=== PATIENT | male | born 1975 | race Caucasian/White ===

== ENCOUNTER 2017-05-20 20:15 | Emergency (ER) | payer BC ==
[2017-05-20] MEDS ORDERED: ACETAMINOPHEN TAB 500 MG TAB PO STA (20:49)
[2017-05-20] MEDS ORDERED: PROMETHAZ-COD 6.25-10 MG/5 ML 5 ML CUP PO STA (20:50)
[2017-05-20] MEDS ORDERED: IPRATROPIUM-ALBUTEROL 3 ML NEB INHALATION STA (20:50)
[2017-05-20] MEDS: SODIUM CHLORIDE 0.9% 500 ML IV SCH ×2 (21:19→22:09)
[2017-05-20 21:24] VITALS: RESP 16
[2017-05-20 21:29] LABS: Basophils % (A) 1 %; Eosinophils # (A) 0.1 k/uL (0-0.7); Eosinophils % (A) 1 %; HGB 12.6 gm/dL (13.0-17.5); Lymphocytes # (A) 0.8 k/uL (1.0-4.8); Lymphocytes % (A) 9 %; MCH 27.1 pg (25.0-35.0); MCHC 32.2 g/dL (31.0-37.0); Mean Platelet Volume 8.2; Monocytes # (A) 1.2 k/uL (0-1.0); Monocytes % (A) 13 %; Neutrophils # (A) 6.7 k/uL (1.3-7.7); Neutrophils % (A) 74 %; Platelet Count 207 k/uL (150-450); RBC 4.65 m/uL (4.30-5.90); RDW 12.5 % (11.5-15.5)
--- NOTE | 2017-05-20 21:29 | ED ---
URI HPI - General Chief Complaint: Upper Respiratory Infection Stated Complaint: FLU Time Seen by Provider: 05/20/17 20:31 Source: patient, RN notes reviewed, old records reviewed Mode of arrival: ambulatory Limitations: no limitations - History of Present Illness Initial Comments: This patient is a 42-year-old male presents emergency Department with chief complaint of the diagnosis of flu earlier this week. Patient was started on Tamiflu and alternating Motrin or Tylenol, but and he were concerned because he is continuing to have fevers for a prolonged period of time. He reports he's had a headache and bodyaches but those subsided at this time. Patient reports that he started to develop a cough yesterday into today. reports his been very harsh. Patient has had Motrin and Tylenol at 5:30 and 6: 30. He reports that the redness swelling and feels very chilled. He denies any nausea or vomiting denies abdominal pain. Denies any significant headache or bodyaches at this time. - Related Data Home Medications Medication Instructions Recorded Confirmed ALPRAZolam [Xanax] 0.25 mg PO HS PRN 05/20/17 05/20/17 Escitalopram [Lexapro] 10 mg PO HS 05/20/17 05/20/17 Metoprolol Tartrate [Lopressor] 25 mg PO HS 05/20/17 05/20/17 Previous Rx's Medication Instructions Recorded Albuterol Inhaler [Ventolin Hfa 1 - 2 puff INHALATION Q6HR PRN #1 05/20/17 Inhaler] inhaler Azithromycin [Zithromax Z-pack] 250 mg PO DIRECTED #6 tab 05/20/17 Bvej-Hpzj-Xuz 6.25-5-10Mg/5Ml 5 ml PO TID #120 ml 05/20/17 [Phenergan VC with Codeine] Allergies Allergy/AdvReac Type Severity Reaction Status Date / Time Penicillins Allergy Unknown Verified 05/20/17 20:52 Sulfa (Sulfonamide Allergy Rash/Hives Verified 05/20/17 20:52 Antibiotics) Review of Systems ROS Statement: Those systems with pertinent positive or pertinent negative responses have been documented in the HPI. ROS Other: All systems not noted in ROS Statement are negative. Past Medical History Past Medical History: Hyperlipidemia, Hypertension History of Any Multi-Drug Resistant Organisms: None Reported Additional Past Surgical History / Comment(s): vasectomy cyst removed from l breast Past Psychological History: Anxiety Smoking Status: Former smoker Past Alcohol Use History: Rare Past Drug Use History: None Reported General Exam - General Exam Comments Initial Comments: This patient is a 42-year-old male. No acute distress. Patient does appear flushed and is diaphoretic swelling on his fever. Limitations: no limitations General appearance: alert, in no apparent distress Head exam: Present: atraumatic, normocephalic, normal inspection Eye exam: Present: normal appearance, PERRL, EOMI. Absent: scleral icterus, conjunctival injection, periorbital swelling ENT exam: Present: normal exam, mucous membranes moist Neck exam: Present: normal inspection. Absent: tenderness, meningismus, lymphadenopathy Respiratory exam: Present: wheezes (right sided upper lobe wheezing). Absent: normal lung sounds bilaterally, respiratory distress, rales, rhonchi, stridor Cardiovascular Exam: Present: regular rate, normal rhythm, normal heart sounds. Absent: systolic murmur, diastolic murmur, rubs, gallop, clicks GI/Abdominal exam: Present: soft, normal bowel sounds. Absent: distended, tenderness, guarding, rebound, rigid Extremities exam: Present: normal inspection, full ROM, normal capillary refill. Absent: tenderness, pedal edema, joint swelling, calf tenderness Back exam: Present: normal inspection Neurological exam: Present: alert, oriented X3, CN II-XII intact Psychiatric exam: Present: normal affect, normal mood Skin exam: Present: warm, dry, intact, normal color. Absent: rash Course Vital Signs 05/20/17 05/20/17 05/20/17 20:18 21:21 21:30 Temperature 101.6 F H Pulse Rate 110 H 82 84 Respiratory 20 16 16 Rate Blood Pressure 130/71 O2 Sat by Pulse 97 Oximetry 05/20/17 22:10 Temperature 98.5 F Pulse Rate Respiratory Rate Blood Pressure O2 Sat by Pulse Oximetry Medical Decision Making - Medical Decision Making Patient is 42-year-old male presents emergency Department with 1 week of fevers , and cough for 2 days. He was diagnosed with the flu preemptively earlier in the week. Then this time patient's influenza testing is negative. Patient was given IV fluids labwork obtained. Blood culture obtained. Patient's chest x- ray shows evidence of a right upper lobe pneumonia. She did have some wheezing noted on exam. Was given a breathing treatment. White blood cell count is within normal limits. At this time I'll treat the patient for community acquired pneumonia with Rocephin and azithromycin. Discharged with a prescription for cough syrup and albuterol inhaler. I discussed that he needs to follow-up promptly with his primary care physician. Discussed if he has any worsening signs or symptoms he needs to return to emergency department for possible [place]. Patient understands treatment plan will comply. Return parameters were discussed. - Lab Data Result diagrams: 05/20/17 21:13 05/20/17 21:13 Lab Results 05/20/17 05/20/17 05/20/17 Range/Units 21:00 21:13 21:13 WBC 9.0 (3.8-10.6) k/uL RBC 4.65 (4.30-5.90) m/uL Hgb 12.6 L (13.0-17.5) gm/dL Hct 39.0 (39.0-53.0) % MCV 84.0 (80.0-100.0) fL MCH 27.1 (25.0-35.0) pg MCHC 32.2 (31.0-37.0) g/dL RDW 12.5 (11.5-15.5) % Plt Count 207 (150-450) k/uL Neutrophils % 74 % Lymphocytes % 9 % Monocytes % 13 % Eosinophils % 1 % Basophils % 1 % Neutrophils # 6.7 (1.3-7.7) k/uL Lymphocytes # 0.8 L (1.0-4.8) k/uL Monocytes # 1.2 H (0-1.0) k/uL Eosinophils # 0.1 (0-0.7) k/uL Basophils # 0.0 (0-0.2) k/uL PT (9.0-12.0) sec INR (<1.2) APTT (22.0-30.0) sec Sodium 140 (137-145) mmol/L Potassium 3.5 (3.5-5.1) mmol/L Chloride 103 (98-107) mmol/L Carbon Dioxide 24 (22-30) mmol/L Anion Gap 13 mmol/L BUN 18 (9-20) mg/dL Creatinine 0.90 (0.66-1.25) mg/dL Est GFR (MDRD) Af Amer >60 (>60 ml/min/1.73 sqM) Est GFR (MDRD) Non-Af >60 (>60 ml/min/1.73 sqM) Glucose 113 H (74-99) mg/dL Plasma Lactic Acid Renan (0.7-2.0) mmol/L Calcium 9.0 (8.4-10.2) mg/dL Total Bilirubin 1.2 (0.2-1.3) mg/dL AST 62 H (17-59) U/L ALT 82 H (21-72) U/L Alkaline Phosphatase 203 H (38-126) U/L Total Protein 6.3 (6.3-8.2) g/dL Albumin 3.4 L (3.5-5.0) g/dL Influenza Type A RNA Not Detected (Not Detectd) Influenza Type B (PCR) Not Detected (Not Detectd) 05/20/17 05/20/17 Range/Units 21:13 21:13 WBC (3.8-10.6) k/uL RBC (4.30-5.90) m/uL Hgb (13.0-17.5) gm/dL Hct (39.0-53.0) % MCV (80.0-100.0) fL MCH (25.0-35.0) pg MCHC (31.0-37.0) g/dL RDW (11.5-15.5) % Plt Count (150-450) k/uL Neutrophils % % Lymphocytes % % Monocytes % % Eosinophils % % Basophils % % Neutrophils # (1.3-7.7) k/uL Lymphocytes # (1.0-4.8) k/uL Monocytes # (0-1.0) k/uL Eosinophils # (0-0.7) k/uL Basophils # (0-0.2) k/uL PT 10.7 (9.0-12.0) sec INR 1.1 (<1.2) APTT 27.3 (22.0-30.0) sec Sodium (137-145) mmol/L Potassium (3.5-5.1) mmol/L Chloride (98-107) mmol/L Carbon Dioxide (22-30) mmol/L Anion Gap mmol/L BUN (9-20) mg/dL Creatinine (0.66-1.25) mg/dL Est GFR (MDRD) Af Amer (>60 ml/min/1.73 sqM) Est GFR (MDRD) Non-Af (>60 ml/min/1.73 sqM) Glucose (74-99) mg/dL Plasma Lactic Acid Renan 0.7 (0.7-2.0) mmol/L Calcium (8.4-10.2) mg/dL Total Bilirubin (0.2-1.3) mg/dL AST (17-59) U/L ALT (21-72) U/L Alkaline Phosphatase (38-126) U/L Total Protein (6.3-8.2) g/dL Albumin (3.5-5.0) g/dL Influenza Type A RNA (Not Detectd) Influenza Type B (PCR) (Not Detectd) - Radiology Data Radiology results: report reviewed Chest x-ray shows right upper lobe consolidation compatible with pneumonia. Follow-up as recommended. Disposition Clinical Impression: Right upper lobe pneumonia Disposition: HOME SELF-CARE Condition: Good Instructions: Pneumonia (ED) Additional Instructions: Patient is a follow-up with primary care physician within the next 1-2 days. Take the antibiotics as prescribed, continue to take cough syrup and use the inhalers as directed. Patient should continue to alternate Motrin and Tylenol every 4 hours. Return to the emergency department if any worsening signs or symptoms occur. Prescriptions: Albuterol Inhaler [Ventolin Hfa Inhaler] 1 - 2 puff INHALATION Q6HR PRN #1 inhaler PRN Reason: Shortness Of Breath Azithromycin [Zithromax Z-pack] 250 mg PO DIRECTED #6 tab Gvtl-Faby-Ull 6.25-5-10Mg/5Ml [Phenergan VC with Codeine] 5 ml PO TID #120 ml Referrals: Francisco Javier Onofre MD [Primary Care Provider] - 1-2 days Time of Disposition: 22:12
[2017-05-20 21:37] LABS: INR 1.1 (<1.2); Partial Thromboplastin Time 27.3 sec (22.0-30.0); Prothrombin Time 10.7 sec (9.0-12.0)
[2017-05-20] MEDS ORDERED: cefTRIAXone IN SWFI 1,000 MG/10 ML SYRINGE IVP STA (21:44)
[2017-05-20 21:46] LABS: ALT 82 U/L (21-72); AST 62 U/L (17-59); Albumin 3.4 g/dL (3.5-5.0); Alkaline Phosphatase 203 U/L (38-126); Anion Gap 13 mmol/L; Blood Urea Nitrogen 18 mg/dL (9-20); Carbon Dioxide 24 mmol/L (22-30); Chloride 103 mmol/L (98-107); Glucose 113 mg/dL (74-99); Potassium 3.5 mmol/L (3.5-5.1); Sodium 140 mmol/L (137-145); Total Bilirubin 1.2 mg/dL (0.2-1.3); Total Protein 6.3 g/dL (6.3-8.2)
--- NOTE | 2017-05-20 21:49 | XR ---
EXAMINATION TYPE: XR chest 2V DATE OF EXAM: 05/20/2017 COMPARISON: 12/05/2015 INDICATION: Pain influenza A cough and fevers TECHNIQUE: Frontal and lateral views of the chest are obtained. FINDINGS: The heart size is normal. The pulmonary vasculature is normal. There is consolidation with air bronchograms in the right apex. Correlate for pneumonia. Follow-up to clearing is recommended.. IMPRESSION: 1. Right upper lobe consolidation can be compatible with pneumonia. Follow-up is recommended.
[2017-05-20] MEDS ORDERED: AZITHROMYCIN 500 MG TAB PO STA (21:54)
[2017-05-20 23:06] VITALS: BP 126/58; PULSE 67; TEMP 98.9
== END 2017-05-20 23:10 | disposition home or self-care (01) ==
LOC: EC 20:15
DX: J18.1 Lobar pneumonia, unspecified organism (principal); I10 Essential (primary) hypertension; F41.9 Anxiety disorder, unspecified; Z87.891 Personal history of nicotine dependence; Z79.899 Other long term (current) drug therapy; Z88.0 Allergy status to penicillin; Z88.2 Allergy status to sulfonamides
CPT/HCPCS: 36415; 94640; 80053; 83605; 85025; 85610; 85730; 87040; 87502; 71046; 99284; 96374; 96361 ×2; J0696

== ENCOUNTER 2017-05-23 14:54 | Inpatient (IN) | payer BC ==
[2017-05-23] MEDS ORDERED: IPRATROPIUM-ALBUTEROL 3 ML NEB INHALATION PRN (15:44)
[2017-05-23] MEDS ORDERED: VANCOMYCIN IV PER PHARMACY 1 EACH MISC MISCELLANE PRN (15:45)
[2017-05-23] MEDS ORDERED: LEVOFLOXACIN 750MG-D5W PMX 750 MG in DEXTROSE/WATER 1 150ML.BAG IVPB SCH (16:00)
[2017-05-23 16:05] VITALS: BMI 35.9
[2017-05-23 16:59] LABS: Basophils # (A) 0.1 k/uL (0-0.2); Basophils % (A) 1 %; Eosinophils # (A) 0.3 k/uL (0-0.7); Eosinophils % (A) 3 %; HCT 38.1 % (39.0-53.0); HGB 11.7 gm/dL (13.0-17.5); Hypochromasia Slight; Lymphocytes # (A) 1.1 k/uL (1.0-4.8); Lymphocytes % (A) 11 %; MCH 26.6 pg (25.0-35.0); MCHC 30.8 g/dL (31.0-37.0); MCV 86.2 fL (80.0-100.0); Mean Platelet Volume 7.6; Monocytes # (A) 0.7 k/uL (0-1.0); Monocytes % (A) 7 %; Neutrophils # (A) 7.6 k/uL (1.3-7.7); Neutrophils % (A) 77 %; Platelet Count 309 k/uL (150-450); RBC 4.42 m/uL (4.30-5.90)
[2017-05-23 17:11] LABS: ALT 65 U/L (21-72); AST 57 U/L (17-59); Albumin 3.1 g/dL (3.5-5.0); Alkaline Phosphatase 217 U/L (38-126); Anion Gap 13 mmol/L; Blood Urea Nitrogen 17 mg/dL (9-20); Calcium 8.5 mg/dL (8.4-10.2); Carbon Dioxide 27 mmol/L (22-30); Chloride 103 mmol/L (98-107); Glucose 83 mg/dL (74-99); Potassium 3.5 mmol/L (3.5-5.1); Sodium 143 mmol/L (137-145); Total Bilirubin 0.6 mg/dL (0.2-1.3); Total Protein 5.9 g/dL (6.3-8.2)
[2017-05-23] MEDS ORDERED: VANCOMYCIN 1,750 MG in SODIUM CHLORIDE 0.9% 250 ML IVPB ONE (18:00)
[2017-05-23] MEDS: ACETAMINOPHEN TAB 325 MG TAB PO PRN (18:14)
[2017-05-23] MEDS: ONDANSETRON 4 MG/2 ML VIAL IVP PRN (18:15)
[2017-05-23] MEDS: IPRATROPIUM-ALBUTEROL 3 ML NEB INHALATION SCH ×2 (19:40→21:36)
[2017-05-23] MEDS: METOPROLOL TARTRATE 25 MG TAB PO SCH (20:47)
[2017-05-23] MEDS: ESCITALOPRAM 10 MG TAB PO SCH (23:15)
[2017-05-23] MEDS: ALPRAZolam 0.25 MG TAB PO PRN (23:15)
[2017-05-23] MEDS: VANCOMYCIN 1,750 MG in SODIUM CHLORIDE 0.9% 250 ML IVPB SCH (23:29)
[2017-05-24] MEDS: ACETAMINOPHEN TAB 325 MG TAB PO PRN ×4 (01:05→20:17)
[2017-05-24] MEDS: ONDANSETRON 4 MG/2 ML VIAL IVP PRN (01:24)
[2017-05-24] MEDS: PANTOPRAZOLE 40 MG TABLET PO SCH (07:46)
[2017-05-24] MEDS: METOPROLOL TARTRATE 25 MG TAB PO SCH ×2 (07:46→21:23)
[2017-05-24] MEDS: ENOXAPARIN 40 MG/0.4 ML SYRINGE SQ SCH (07:46)
[2017-05-24] MEDS: IPRATROPIUM-ALBUTEROL 3 ML NEB INHALATION SCH ×4 (08:10→19:47)
[2017-05-24] MEDS: VANCOMYCIN 1,750 MG in SODIUM CHLORIDE 0.9% 250 ML IVPB SCH ×2 (08:31→15:19)
[2017-05-24] MEDS ORDERED: ESCITALOPRAM 10 MG TAB PO SCH (09:00)
--- NOTE | 2017-05-24 11:27 | P.CNPUL ---
History of Present Illness Consult date: 05/24/17 Requesting physician: Keshawn Huynh Reason for consult: dyspnea, cough, pneumonia, abnormal CXR/CT Chief complaint: Fever, cough, body aches, multifocal pneumonia History of present illness: Ori is a 42-year-old white male patient of Dr. Onofre, has been having ongoing symptoms of high fevers, nonproductive cough, generalized body aches, shortness of breath, and fatigue for about a week. His symptoms started on 08/2017 and he was seen in an urgent clinic, was given Tamiflu for his symptoms , but he was not checked for the flu. By 05/20/2017, patient's symptoms have progressed, patient was increasingly more fatigued, short winded, and was having breakthrough high fevers despite alternating Tylenol and ibuprofen. Patient was seen at the [facility] ED or his ongoing fevers, and progressing cough. The body aches and the headache had subsided by that time. Chest x-ray taken in the ED department on 05/20/2017 showed evidence of right upper lobe pneumonia. Patient was given Rocephin IM and was given a Z-Yonatan, prescription cough syrup and albuterol inhaler and was told to follow up with Dr. Onofre on 05/24/2017. When seen by Dr. Onofre in the office on , chest x-ray taken in the office showed acute multifocal pneumonia involving the right upper lobe, lingula and left lower lobe. A recommendation was made for inpatient treatment with IV antibiotics, including vancomycin and Levaquin. Patient was admitted to the regular medical surgical floor for further treatment. Blood cultures and sputum cultures were collected and sent, and pending at this time. Patient did have low-grade fevers, with T-max of 100.2F. Lab work showed WBC of 10.0, hemoglobin of 11.7, electrolyte profile was within normal limits, normal renal profile, BUN is 17, creatinine 0.80. Patient was started on IV vancomycin, Levaquin, DuoNeb nebulized treatments. He remains on room air, with O2 sat between 90 and 92%. Other medical problems include essential hypertension, hypercholesterolemia, obesity and obstructive sleep apnea syndrome. Patient had a sleep study [address] Candelario, and was told he has a borderline IRENE, no CPAP device was described at that time. On today's evaluation, patient states feeling better, still has the cough , which is mostly dry, but was able to reduce a specimen for sputum culture. No fever this morning. Review of Systems All systems: negative Constitutional: Reports anorexia, Reports fatigue, Reports weakness, Denies chills, Denies fever Eyes: denies blurred vision, denies pain Ears, nose, mouth and throat: Denies headache, Denies sore throat Cardiovascular: Reports high blood pressure, Denies chest pain, Denies shortness of breath Respiratory: Reports dyspnea, Reports sleep apnea, Denies cough Gastrointestinal: Denies abdominal pain, Denies diarrhea, Denies nausea, Denies vomiting Musculoskeletal: Denies myalgias Integumentary: Denies pruritus, Denies rash Neurological: Denies numbness, Denies weakness Psychiatric: Denies anxiety, Denies depression Endocrine: Denies fatigue, Denies weight change Past Medical History Past Medical History: Hyperlipidemia, Hypertension History of Any Multi-Drug Resistant Organisms: None Reported Additional Past Surgical History / Comment(s): vasectomy cyst removed from l breast Past Psychological History: Anxiety Smoking Status: Former smoker Past Alcohol Use History: Rare Past Drug Use History: None Reported - Past Family History Father Family Medical History: Cancer Mother Family Medical History: Diabetes Mellitus, Hypertension Additional Family Medical History / Comment(s): chrons, diverticulosis, Medications and Allergies Home Medications Medication Instructions Recorded Confirmed Type ALPRAZolam [Xanax] 0.25 mg PO HS PRN 05/20/17 05/23/17 History Albuterol Inhaler [Ventolin Hfa 1 - 2 puff INHALATION Q6HR PRN #1 05/20/1705/23 Rx Inhaler] inhaler Escitalopram [Lexapro] 10 mg PO HS 05/20/17 05/23/17 History Metoprolol Tartrate [Lopressor] 25 mg PO HS 05/20/17 05/23/17 History Nmko-Gjel-Qhb 6.25-5-10Mg/5Ml 5 ml PO TID #120 ml 05/20/17 05/23/17 Rx [Phenergan VC with Codeine] Acetaminophen Tab [Tylenol Tab] 1,000 mg PO Q6HR PRN 05/23/17 05/23/17 History Aspirin/Acetaminophen/Caffeine 1 tab PO Q6H PRN 05/23/17 05/23/17 History [Excedrin Extra Strength Caplet] Azithromycin [Zithromax Z-pack] See Taper PO DAILY 05/23/17 05/23/17 History Ibuprofen [Motrin Ib] 400 mg PO Q6H PRN 05/23/17 05/23/17 History Allergies Allergy/AdvReac Type Severity Reaction Status Date / Time Penicillins Allergy Unknown Verified 05/23/17 15:35 Sulfa (Sulfonamide Allergy Rash/Hives Verified 05/23/17 15:35 Antibiotics) Physical Exam Vitals: Vital Signs Temp Pulse Pulse Resp BP BP Pulse Ox 05/24/17 08:22 84 05/24/17 08:12 80 05/24/17 07:00 98.0 F 65 15 135/82 90 L 05/24/17 01:21 88 05/24/17 01:07 90 05/23/17 23:37 100.2 F H 91 20 120/74 92 L 05/23/17 19:51 88 05/23/17 19:44 95 05/23/17 19:41 88 16 05/23/17 19:07 99.9 F H 05/23/17 17:58 100.0 F H 05/23/17 15:23 98.6 F 71 16 129/83 94 L Intake and Output 05/23/17 05/24/17 05/24/17 22:59 06:59 14:59 Output Total 300 Balance -300 Output: Urine 300 Other: Voiding Method Toilet # Voids 1 Weight 113.5 kg GENERAL EXAM: Alert, active, comfortable in no apparent distress. HEAD: Normocephalic/atraumatic. EYES: Normal reaction of pupils, equal size. Conjunctiva pink, sclera white. NOSE: Clear with pink turbinates. THROAT: No erythema or exudates. NECK: No masses, no JVD, no thyroid enlargement, no adenopathy. CHEST: No chest wall deformity. Symmetrical expansion. LUNGS: Equal air entry with coarse crackles over left posterior lower lobe, fine rales over the right base, overall diminished breath sounds bilaterally CVS: Regular rate and rhythm, normal S1 and S2, no gallops, no murmurs, no rubs ABDOMEN: Soft, nontender. No hepatosplenomegaly, normal bowel sounds, no guarding or rigidity. EXTREMITIES: No clubbing, no edema, no cyanosis, 2+ pulses and upper and lower extremities. MUSCULOSKELETAL: Muscle strength and tone normal. SPINE: No scoliosis or deformity SKIN: No rashes CENTRAL NERVOUS SYSTEM: Alert and oriented -3. No focal deficits, tone is normal in all 4 extremities. PSYCHIATRIC: Alert and oriented -3. Appropriate affect. Intact judgment and insight. Results - Laboratory Findings CBC and BMP: 05/23/17 16:18 18 16:18 Abnormal lab findings: Abnormal Labs 18 05/23/17 16:18 16:18 Hgb 11.7 L Hct 38.1 L MCHC 30.8 L Alkaline Phosphatase 217 H Total Protein 5.9 L Albumin 3.1 L - Diagnostic Findings Chest x-ray: report reviewed Assessment and Plan Plan: Assessment: #1. Acute multifocal pneumonia involving the right upper lobe, lingula, and left lower lobe. This is a community-acquired pneumonia with failed outpatient therapy #2. Essential hypertension #3. Obstructive sleep apnea, currently not on CPAP therapy. Last sleep study was done 5 years ago, patient was told he is borderline, and no CPAP device was prescribed. This will be followed up on outpatient basis #4. Obesity #5. Hypercholesterolemia #6. Anxiety #7. Former smoker, quit in 2008, prior to that only smoked for 4 years, on and off, with one pack of cigarettes lasting 2 weeks #8. History of left breast cyst removal #9. History of vasectomy Plan: Continue Levaquin and vancomycin. Will await the results of the blood and sputum cultures. Continue DuoNeb nebulized treatments, continue GI/DVT prophylaxis. Patient's is supposed to have a repeat chest x-ray done this morning, we'll review the results of that. Patient reports improvement in terms of dyspnea, fevers and energy level since yesterday. Tolerating oral intake. Home meds were reordered. Did have some mild nausea last night, which has responded to IV Zofran. No complaints of nausea this morning. We'll continue to follow. I performed a history & physical examination of the patient and discussed their management with my nurse practitioner, Betty Rodriguez. I reviewed the nurse practitioner's note and agree with the documented findings and plan of care. Lung sounds are positive for diminished breath sounds bilaterally, coarse crackles over left posterior lower lobe, and fine rales on the right. The findings and the impression was discussed with the patient. I attest to the documentation by the nurse practitioner. Time with Patient: Greater than 30
--- NOTE | 2017-05-24 14:45 | XR ---
EXAMINATION TYPE: XR chest 2V DATE OF EXAM: 05/24/2017 COMPARISON: Prior chest x-ray 05/23/2017 and 05/20/2017 HISTORY: Pneumonia, cough TECHNIQUE: Frontal and lateral views of the chest are obtained. FINDINGS: Persistent airspace disease noted in the right upper lobe. No evident pneumothorax or pleu ral effusion. There is also airspace disease present in the left lower lobe. Cardiac mediastinal silh ouette shows a similar appearance. IMPRESSION: Bilobar pneumonia, follow-up to resolution to exclude underlying mass.
[2017-05-24] MEDS: LEVOFLOXACIN 750 MG TAB PO SCH (15:19)
--- NOTE | 2017-05-24 17:15 | P.HPIM ---
History of Present Illness H&P Date: 05/24/17 Chief Complaint: Shortness of breath Patient is a 42-year-old male with a known history of hypertension, hyperlipidemia, borderline obstetric sleep apnea not on CPAP was sent from Dr. Onofre's office due to failed outpatient therapy for pneumonia. Patient presented to clinic with complaints of fever and generalized body aches along with shortness of breath. Patient initially had upper respiratory infection and flulike symptoms with body aches, congestion and shortness of breath on 11/2017 and went to urgent care clinic. Flu test strips were not available at the time and patient was sent home with Tamiflu. On 05/20/2017 patient's symptoms have progressed and was started having cough fevers and worsening body aches. Patient presented to ER where he had chest x-ray showed right upper lobe pneumonia. Patient was given a dose of Rocephin and sent home on Z-Yonatan. Patient's symptoms have not been completely resolved and presented to his PCPs office and repeat chest x-ray was done showed multifocal pneumonia. Patient was sent to Hospital for further management. Patient was started on vancomycin and Levaquin. T-max was 100.2. Review of Systems Constitutional: Does have fever. No chills. Generalized weakness and fatigue Abdomen: Patient denied nausea vomiting and diarrhea and abdominal pain. Cardiovascular: Patient denies any chest pain or short of breath no palpitations. Respiratory: Patient does have cough no sputum production. And positive shortness of breath Neurologic: Patient denied any numbness or tingling headache. Musculoskeletal: Patient denies any complaints of joint swelling or deformity. Skin: Negative Psychiatric: Negative Endocrine: No heat or cold intolerance. No recent weight gain. Genitourinary: No dysuria or hematuria. All other 14 point ROS negative except the above Past Medical History Past Medical History: Hyperlipidemia, Hypertension History of Any Multi-Drug Resistant Organisms: None Reported Additional Past Surgical History / Comment(s): vasectomy cyst removed from l breast Past Psychological History: Anxiety Smoking Status: Former smoker Past Alcohol Use History: Rare Past Drug Use History: None Reported - Past Family History Father Family Medical History: Cancer Mother Family Medical History: Diabetes Mellitus, Hypertension Additional Family Medical History / Comment(s): chrons, diverticulosis, Medications and Allergies Home Medications Medication Instructions Recorded Confirmed Type ALPRAZolam [Xanax] 0.25 mg PO HS PRN 05/20/17 05/23/17 History Albuterol Inhaler [Ventolin Hfa 1 - 2 puff INHALATION Q6HR PRN #1 05/20/1705/23 Rx Inhaler] inhaler Escitalopram [Lexapro] 10 mg PO HS 05/20/17 05/23/17 History Metoprolol Tartrate [Lopressor] 25 mg PO HS 05/20/17 05/23/17 History Fizq-Ydyi-Sxe 6.25-5-10Mg/5Ml 5 ml PO TID #120 ml 05/20/17 05/23/17 Rx [Phenergan VC with Codeine] Acetaminophen Tab [Tylenol Tab] 1,000 mg PO Q6HR PRN 05/23/17 05/23/17 History Aspirin/Acetaminophen/Caffeine 1 tab PO Q6H PRN 05/23/17 05/23/17 History [Excedrin Extra Strength Caplet] Azithromycin [Zithromax Z-pack] See Taper PO DAILY 05/23/17 05/23/17 History Ibuprofen [Motrin Ib] 400 mg PO Q6H PRN 05/23/17 05/23/17 History Allergies Allergy/AdvReac Type Severity Reaction Status Date / Time Penicillins Allergy Unknown Verified 05/23/17 15:35 Sulfa (Sulfonamide Allergy Rash/Hives Verified 05/23/17 15:35 Antibiotics) Physical Exam Vitals: Vital Signs Temp Pulse Pulse Resp BP BP Pulse Ox 05/24/17 08:22 84 05/24/17 08:12 80 05/24/17 07:00 98.0 F 65 15 135/82 90 L 05/24/17 01:21 88 05/24/17 01:07 90 05/23/17 23:37 100.2 F H 91 20 120/74 92 L 05/23/17 19:51 88 05/23/17 19:44 95 05/23/17 19:41 88 16 05/23/17 19:07 99.9 F H 05/23/17 17:58 100.0 F H 05/23/17 15:23 98.6 F 71 16 129/83 94 L Intake and Output 05/23/17 05/24/17 05/24/17 22:59 06:59 14:59 Output Total 300 Balance -300 Output: Urine 300 Other: Voiding Method Toilet # Voids 1 Weight 113.5 kg PHYSICAL EXAMINATION: Patient is lying in the bed comfortably, no acute distress, awake alert and oriented.. HEENT: Normocephalic. Neck is supple. Pupils reactive. Nostrils clear. Oral cavity is moist. Ears reveal no drainage. Neck reveals no JVD, carotid bruits, or thyromegaly. CHEST EXAMINATION: Trachea is central. Symmetrical expansion. Right upper lobe bronchial sounds and left basilar crackles. No wheezing CARDIAC: Normal S1, S2 with no gallops. No murmurs ABDOMEN: Soft. Bowel sounds normal. No organomegaly. No abdominal bruits. Extremities: reveal no edema. No clubbing or cyanosis Neurologically awake, alert, oriented x3 with well-coordinated movements. No focal deficits noted Skin: No rash or skin lesions. Psychiatric: Coperative. Nonsuicidal Musculoskeletal: No joint swelling or deformity. Normal range of motion. Results CBC & Chem 7: 05/23/17 16:18 05/23/17 16:18 Labs: Abnormal Lab Results - Last 24 Hours (Table) 18 05/23/17 Range/Units 16:18 16:18 Hgb 11.7 L (13.0-17.5) gm/dL Hct 38.1 L (39.0-53.0) % MCHC 30.8 L (31.0-37.0) g/dL Alkaline Phosphatase 217 H (38-126) U/L Total Protein 5.9 L (6.3-8.2) g/dL Albumin 3.1 L (3.5-5.0) g/dL Microbiology - Last 24 Hours (Table) 05/23/17 19:50 Gram Stain - Preliminary Sputum Sputum Culture - Preliminary Thrombosis Risk Factor Assmnt - DVT/VTE Prophylaxis DVT/VTE Prophylaxis: Pharmacologic Prophylaxis ordered - Choose All That Apply Any of the Below Risk Factors Present?: No Assessment and Plan Assessment: Multifocal pneumonia with failed outpatient therapy for community-acquired pneumonia Hypertension Hyperlipidemia Borderline obstructive sleep apnea. CPAP not recommended about 5 years ago Morbid obesity with BMI 35.9 Anxiety History of smoking DVT prophylaxis Plan: Patient will be continued on vancomycin and Levaquin. Sputum cultures and blood cultures were sent. Pulmonary has been consulted. Continue Tylenol for fever. Symptomatic management. Further recommendations based on the critical course. Time with Patient: Greater than 30
[2017-05-24] MEDS: ESCITALOPRAM 10 MG TAB PO SCH (21:24)
[2017-05-25] MEDS: VANCOMYCIN 1,750 MG in SODIUM CHLORIDE 0.9% 250 ML IVPB SCH ×4 (00:39→23:13)
[2017-05-25] MEDS: ONDANSETRON 4 MG/2 ML VIAL IVP PRN (00:55)
[2017-05-25] MEDS: ALPRAZolam 0.25 MG TAB PO PRN ×2 (03:19→20:46)
[2017-05-25] MEDS: ACETAMINOPHEN TAB 325 MG TAB PO PRN ×2 (03:21→14:48)
[2017-05-25] MEDS ORDERED: VANCOMYCIN TROUGH DUE 1 EACH MISC MISCELLANE ONE (07:00)
[2017-05-25] MEDS: IPRATROPIUM-ALBUTEROL 3 ML NEB INHALATION SCH ×4 (07:54→21:05)
[2017-05-25] MEDS: ENOXAPARIN 40 MG/0.4 ML SYRINGE SQ SCH (07:59)
[2017-05-25] MEDS: METOPROLOL TARTRATE 25 MG TAB PO SCH ×2 (07:59→20:45)
[2017-05-25] MEDS: PANTOPRAZOLE 40 MG TABLET PO SCH (08:16)
[2017-05-25 08:42] LABS: Anion Gap 11 mmol/L; Blood Urea Nitrogen 12 mg/dL (9-20); Calcium 8.9 mg/dL (8.4-10.2); Carbon Dioxide 28 mmol/L (22-30); Chloride 104 mmol/L (98-107); Glucose 94 mg/dL (74-99); Sodium 143 mmol/L (137-145)
[2017-05-25 08:54] LABS: Potassium 4.1 mmol/L (3.5-5.1)
--- NOTE | 2017-05-25 11:57 | P.PN ---
Subjective Progress Note Date: 05/25/17 Principal diagnosis: Acute multifocal pneumonia involving the right upper lobe, lingula and left lower lobe, community-acquired Ori is a 42-year-old white male patient of Dr. Onofre, has been having ongoing symptoms of high fevers, nonproductive cough, generalized body aches, shortness of breath, and fatigue for about a week. His symptoms started on 08/2017 and he was seen in an urgent clinic, was given Tamiflu for his symptoms , but he was not checked for the flu. By 05/20/2017, patient's symptoms have progressed, patient was increasingly more fatigued, short winded, and was having breakthrough high fevers despite alternating Tylenol and ibuprofen. Patient was seen at the [facility] ED or his ongoing fevers, and progressing cough. The body aches and the headache had subsided by that time. Chest x-ray taken in the ED department on 05/20/2017 showed evidence of right upper lobe pneumonia. Patient was given Rocephin IM and was given a Z-Yonatan, prescription cough syrup and albuterol inhaler and was told to follow up with Dr. Onofre on 05/24/2017. When seen by Dr. Onofre in the office on , chest x-ray taken in the office showed acute multifocal pneumonia involving the right upper lobe, lingula and left lower lobe. A recommendation was made for inpatient treatment with IV antibiotics, including vancomycin and Levaquin. Patient was admitted to the regular medical surgical floor for further treatment. Blood cultures and sputum cultures were collected and sent, and pending at this time. Patient did have low-grade fevers, with T-max of 100.2F. Lab work showed WBC of 10.0, hemoglobin of 11.7, electrolyte profile was within normal limits, normal renal profile, BUN is 17, creatinine 0.80. Patient was started on IV vancomycin, Levaquin, DuoNeb nebulized treatments. He remains on room air, with O2 sat between 90 and 92%. Other medical problems include essential hypertension, hypercholesterolemia, obesity and obstructive sleep apnea syndrome. Patient had a sleep study [address] Candelario, and was told he has a borderline IRENE, no CPAP device was described at that time. On today's evaluation, patient states feeling better, still has the cough , which is mostly dry, but was able to reduce a specimen for sputum culture. No fever this morning. On 05/25/2017 patient seen again in follow-up. He continues to improve, he states he has more energy today, not as fatigued, starting to expectorate some brown colored sputum. He has been ambulating within the room, tolerating it well. Lung sounds are positive for coarse rales over left posterior lower lobe , clear over the right lung. No wheezes or rhonchi auscultated. Afebrile last 24 hours, he is currently on room air, with pulse ox at 91%. His other vitals are stable. Blood cultures show no growth at the 24-hour ute. Sputum cultures pending. Patient remains on a combination of vancomycin and Levaquin. Objective - Vital Signs Vital signs: Vital Signs Temp 97.0 F L 05/25/17 07:00 Pulse 76 05/25/17 08:12 Resp 16 05/25/17 07:00 BP 125/76 05/25/17 07:00 Pulse Ox 91 L 05/25/17 07:00 Intake & Output 05/24/17 05/25/17 05/25/17 18:59 06:59 18:59 Other: Voiding Method Toilet Toilet Toilet # Voids 2 1 2 - Exam GENERAL EXAM: Alert, active, comfortable in no apparent distress. HEAD: Normocephalic/atraumatic. EYES: Normal reaction of pupils, equal size. Conjunctiva pink, sclera white. NOSE: Clear with pink turbinates. THROAT: No erythema or exudates. NECK: No masses, no JVD, no thyroid enlargement, no adenopathy. CHEST: No chest wall deformity. Symmetrical expansion. LUNGS: Equal air entry with coarse crackles over left posterior lower lobe, clear over the right base, overall diminished breath sounds bilaterally CVS: Regular rate and rhythm, normal S1 and S2, no gallops, no murmurs, no rubs ABDOMEN: Soft, nontender. No hepatosplenomegaly, normal bowel sounds, no guarding or rigidity. EXTREMITIES: No clubbing, no edema, no cyanosis, 2+ pulses and upper and lower extremities. MUSCULOSKELETAL: Muscle strength and tone normal. SPINE: No scoliosis or deformity SKIN: No rashes CENTRAL NERVOUS SYSTEM: Alert and oriented -3. No focal deficits, tone is normal in all 4 extremities. PSYCHIATRIC: Alert and oriented -3. Appropriate affect. Intact judgment and insight. - Labs CBC & Chem 7: 05/23/17 16:18 05/25/17 08:00 Labs: Microbiology - Last 24 Hours (Table) 05/23/17 16:38 Blood Culture - Preliminary Blood No Growth after 24 hours 05/23/17 16:18 Blood Culture - Preliminary Blood No Growth after 24 hours 05/23/17 19:50 Gram Stain - Preliminary Sputum Sputum Culture - Preliminary Assessment and Plan Plan: Assessment: #1. Acute multifocal pneumonia involving the right upper lobe, lingula, and left lower lobe. This is a community-acquired pneumonia with failed outpatient therapy #2. Essential hypertension #3. Obstructive sleep apnea, currently not on CPAP therapy. Last sleep study was done 5 years ago, patient was told he is borderline, and no CPAP device was prescribed. This will be followed up on outpatient basis #4. Obesity #5. Hypercholesterolemia #6. Anxiety #7. Former smoker, quit in 2008, prior to that only smoked for 4 years, on and off, with one pack of cigarettes lasting 2 weeks #8. History of left breast cyst removal #9. History of vasectomy Plan: Continue current antibiotic coverage with Levaquin and vancomycin. Continue nebulized treatments. Continue with present plan of care. Patient is improving , but not back to the baseline yet. Increase activity as tolerated. We will repeat chest x-ray in the morning, if that shows some improvement in the patient continues to improve patient will be considered for discharge tomorrow morning. He will need a follow-up appointment with Dr. Echeverria in the office in one week, he was recommended to get pneumococcal vaccine once he has completely improved. I performed a history & physical examination of the patient and discussed their management with my nurse practitioner, Betty Rodriguez. I reviewed the nurse practitioner's note and agree with the documented findings and plan of care. Lung sounds are positive for diminished breath sounds bilaterally, coarse crackles over left posterior lower lobe, and fine rales on the right. The findings and the impression was discussed with the patient. I attest to the documentation by the nurse practitioner. Time with Patient: Less than 30
[2017-05-25] MEDS: LEVOFLOXACIN 750 MG TAB PO SCH (15:15)
[2017-05-25] MEDS: ESCITALOPRAM 10 MG TAB PO SCH (20:45)
--- NOTE | 2017-05-26 07:57 | XR ---
EXAMINATION TYPE: XR chest 2V DATE OF EXAM: 05/26/2017 COMPARISON: Prior chest x-ray 05/24/2017 HISTORY: Multi lobar pneumonia TECHNIQUE: Frontal and lateral views of the chest are obtained. FINDINGS: Again noted is abnormal increased density in the right upper lobe, left lower lobe. No amador dent pneumothorax or pleural effusion. IMPRESSION: Findings compatible with patient's history of pneumonia, follow-up to resolution.
[2017-05-26] MEDS: ENOXAPARIN 40 MG/0.4 ML SYRINGE SQ SCH (08:14)
[2017-05-26] MEDS: METOPROLOL TARTRATE 25 MG TAB PO SCH ×2 (08:17→21:13)
[2017-05-26] MEDS: PANTOPRAZOLE 40 MG TABLET PO SCH (08:17)
[2017-05-26] MEDS: VANCOMYCIN 1,750 MG in SODIUM CHLORIDE 0.9% 250 ML IVPB SCH ×2 (08:17→15:44)
[2017-05-26] MEDS: IPRATROPIUM-ALBUTEROL 3 ML NEB INHALATION SCH ×4 (08:23→20:33)
[2017-05-26 09:27] LABS: HCT 38.5 % (39.0-53.0); HGB 11.9 gm/dL (13.0-17.5); Hypochromasia Slight; MCH 26.8 pg (25.0-35.0); MCHC 30.9 g/dL (31.0-37.0); MCV 86.9 fL (80.0-100.0); Mean Platelet Volume 7.3; Platelet Count 431 k/uL (150-450); RBC 4.44 m/uL (4.30-5.90); RDW 13.3 % (11.5-15.5); WBC 9.5 k/uL (3.8-10.6)
[2017-05-26 09:37] LABS: ALT 88 U/L (21-72); AST 69 U/L (17-59); Albumin 3.1 g/dL (3.5-5.0); Alkaline Phosphatase 223 U/L (38-126); Anion Gap 12 mmol/L; Blood Urea Nitrogen 11 mg/dL (9-20); Carbon Dioxide 24 mmol/L (22-30); Chloride 105 mmol/L (98-107); Glucose 105 mg/dL (74-99); Sodium 141 mmol/L (137-145); Total Bilirubin 0.5 mg/dL (0.2-1.3); Total Protein 5.9 g/dL (6.3-8.2)
[2017-05-26 10:50] LABS: Band Neutrophils % 3 %; Eosinophils # (M) 0.19 k/uL (0-0.7); Lymphocytes # (M) 2.28 k/uL (1.0-4.8); Metamyelocytes # (M) 0.19 k/uL (0); Metamyelocytes % 2 %; Monocytes # (M) 0.48 k/uL (0-1.0); Myelocytes # (M) 0.48 k/uL (0); Myelocytes % 5 %; Neutrophils % (M) 59 %; Nucleated Red Blood Cells 0 /100 WBC (0-0); Total Cells Counted 100
[2017-05-26 10:51] LABS: Poikilocytosis (M) Present
--- NOTE | 2017-05-26 15:40 | P.PN ---
Subjective Progress Note Date: 05/26/17 Principal diagnosis: Acute multifocal pneumonia involving the right upper lobe, lingula and left lower lobe, community-acquired Ori is a 42-year-old white male patient of Dr. Onofre, has been having ongoing symptoms of high fevers, nonproductive cough, generalized body aches, shortness of breath, and fatigue for about a week. His symptoms started on 08/2017 and he was seen in an urgent clinic, was given Tamiflu for his symptoms , but he was not checked for the flu. By 05/20/2017, patient's symptoms have progressed, patient was increasingly more fatigued, short winded, and was having breakthrough high fevers despite alternating Tylenol and ibuprofen. Patient was seen at the [facility] ED or his ongoing fevers, and progressing cough. The body aches and the headache had subsided by that time. Chest x-ray taken in the ED department on 05/20/2017 showed evidence of right upper lobe pneumonia. Patient was given Rocephin IM and was given a Z-Yonatan, prescription cough syrup and albuterol inhaler and was told to follow up with Dr. Onofre on 05/24/2017. When seen by Dr. Onofer in the office on , chest x-ray taken in the office showed acute multifocal pneumonia involving the right upper lobe, lingula and left lower lobe. A recommendation was made for inpatient treatment with IV antibiotics, including vancomycin and Levaquin. Patient was admitted to the regular medical surgical floor for further treatment. Blood cultures and sputum cultures were collected and sent, and pending at this time. Patient did have low-grade fevers, with T-max of 100.2F. Lab work showed WBC of 10.0, hemoglobin of 11.7, electrolyte profile was within normal limits, normal renal profile, BUN is 17, creatinine 0.80. Patient was started on IV vancomycin, Levaquin, DuoNeb nebulized treatments. He remains on room air, with O2 sat between 90 and 92%. Other medical problems include essential hypertension, hypercholesterolemia, obesity and obstructive sleep apnea syndrome. Patient had a sleep study [address] Candelario, and was told he has a borderline IRENE, no CPAP device was described at that time. On today's evaluation, patient states feeling better, still has the cough , which is mostly dry, but was able to reduce a specimen for sputum culture. No fever this morning. On 05/25/2017 patient seen again in follow-up. He continues to improve, he states he has more energy today, not as fatigued, starting to expectorate some brown colored sputum. He has been ambulating within the room, tolerating it well. Lung sounds are positive for coarse rales over left posterior lower lobe , clear over the right lung. No wheezes or rhonchi auscultated. Afebrile last 24 hours, he is currently on room air, with pulse ox at 91%. His other vitals are stable. Blood cultures show no growth at the 24-hour ute. Sputum cultures pending. Patient remains on a combination of vancomycin and Levaquin. On 05/26/2017 patient continues to improve. His energy level is not back to the baseline yet however significantly improved from admission. Lung sounds also show improvement, left lower lobe is positive for just a few rales, right upper lobe is positive for bronchial sounds. Vital signs are stable, patient is afebrile, microbiology results showed no growth on the blood cultures and the sputum cultures. Patient remains on a combination of Levaquin and vancomycin. Today's chest x-ray was reviewed, and the findings were compatible with increased density in the right upper lobe, and left lower lobe. Patient has been ambulating within the room, has gotten up to the bathroom and to take a shower, tolerated activity fairly well. His appetite is not back to normal yet, however it's improving. Objective - Vital Signs Vital signs: Vital Signs Temp 97.1 F L 05/26/17 07:00 Pulse 80 05/26/17 08:36 Resp 16 05/26/17 08:00 BP 147/83 05/26/17 07:00 Pulse Ox 92 L 05/26/17 08:25 Intake & Output 05/25/17 05/26/17 05/26/17 18:59 06:59 18:59 Other: Voiding Method Toilet Toilet Toilet # Voids 4 2 - Exam GENERAL EXAM: Alert, active, comfortable in no apparent distress. HEAD: Normocephalic/atraumatic. EYES: Normal reaction of pupils, equal size. Conjunctiva pink, sclera white. NOSE: Clear with pink turbinates. THROAT: No erythema or exudates. NECK: No masses, no JVD, no thyroid enlargement, no adenopathy. CHEST: No chest wall deformity. Symmetrical expansion. LUNGS: Equal air entry with a few diminished rales over left posterior lower lobe, clear over the right base, bronchial sounds over right upper lobe CVS: Regular rate and rhythm, normal S1 and S2, no gallops, no murmurs, no rubs ABDOMEN: Soft, nontender. No hepatosplenomegaly, normal bowel sounds, no guarding or rigidity. EXTREMITIES: No clubbing, no edema, no cyanosis, 2+ pulses and upper and lower extremities. MUSCULOSKELETAL: Muscle strength and tone normal. SPINE: No scoliosis or deformity SKIN: No rashes CENTRAL NERVOUS SYSTEM: Alert and oriented -3. No focal deficits, tone is normal in all 4 extremities. PSYCHIATRIC: Alert and oriented -3. Appropriate affect. Intact judgment and insight. - Labs CBC & Chem 7: 05/26/17 08:21 05/26/17 08:21 Labs: Abnormal Lab Results - Last 24 Hours (Table) 05/26/17 05/26/17 Range/Units 08:21 08:21 Hgb 11.9 L (13.0-17.5) gm/dL Hct 38.5 L (39.0-53.0) % MCHC 30.9 L (31.0-37.0) g/dL Glucose 105 H (74-99) mg/dL AST 69 H (17-59) U/L ALT 88 H (21-72) U/L Alkaline Phosphatase 223 H (38-126) U/L Total Protein 5.9 L (6.3-8.2) g/dL Albumin 3.1 L (3.5-5.0) g/dL Microbiology - Last 24 Hours (Table) 05/23/17 19:50 Gram Stain - Final Sputum Sputum Culture - Final 05/23/17 16:38 Blood Culture - Preliminary Blood No Growth after 48 hours 05/23/17 16:18 Blood Culture - Preliminary Blood No Growth after 48 hours Assessment and Plan Plan: Assessment: #1. Acute multifocal pneumonia involving the right upper lobe, lingula, and left lower lobe. This is a community-acquired pneumonia with failed outpatient therapy #2. Essential hypertension #3. Obstructive sleep apnea, currently not on CPAP therapy. Last sleep study was done 5 years ago, patient was told he is borderline, and no CPAP device was prescribed. This will be followed up on outpatient basis #4. Obesity #5. Hypercholesterolemia #6. Anxiety #7. Former smoker, quit in 2008, prior to that only smoked for 4 years, on and off, with one pack of cigarettes lasting 2 weeks #8. History of left breast cyst removal #9. History of vasectomy Plan: Patient continues to improve, has been afebrile, vital signs are stable, improved in terms of energy as well. Still has occasional cough, producing small amount of brownish sputum. Is tolerating oral intake, although appetite is not back to baseline yet. He remains on combination of Levaquin and vancomycin, his blood and sputum cultures remain negative. Today's chest x-ray has been reviewed. Shows significant improvement in the appearance of right upper lobe and left lower lobe pneumonia. From pulmonary standpoint patient can be considered for discharge tomorrow, if he continues to improve, he will need 7 more days of Levaquin 750 mg daily. His vancomycin will be stopped upon discharge. He will need a follow-up appointment with Dr. Onofre in the office in one week. I performed a history & physical examination of the patient and discussed their management with my nurse practitioner, Betty Rodriguez. I reviewed the nurse practitioner's note and agree with the documented findings and plan of care. Lung sounds are positive for diminished breath sounds bilaterally, some crackles over left posterior lower lobe, bronchial sounds over right upper lobe. The findings and the impression was discussed with the patient. I attest to the documentation by the nurse practitioner. Time with Patient: Less than 30
[2017-05-26] MEDS: LEVOFLOXACIN 750 MG TAB PO SCH (15:44)
--- NOTE | 2017-05-26 17:58 | P.PN ---
Subjective Progress Note Date: 05/25/17 Progress note being dictated for Dr. 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 Onofre's office due to failed outpatient therapy for pneumonia. Patient presented to clinic with complaints of fever and generalized body aches along with shortness of breath. Patient initially had upper respiratory infection and flulike symptoms with body aches, congestion and shortness of breath on 11/2017 and went to urgent care clinic. Flu test strips were not available at the time and patient was sent home with Tamiflu. On 05/20/2017 patient's symptoms have progressed and was started having cough fevers and worsening body aches. Patient presented to ER where he had chest x-ray showed right upper lobe pneumonia. Patient was given a dose of Rocephin and sent home on Z-Yonatan. Patient's symptoms have not been completely resolved and presented to his PCPs office and repeat chest x-ray was done showed multifocal pneumonia. Patient was sent to Hospital for further management. Patient was started on vancomycin and Levaquin. T-max was 100.2. 05/25/17 maintained on Levaquin and vancomycin. breathing improving, reports productive cough with green/brn sputum. Ambulating in room, tolerating increase in exertion well. Afebrile. Sputum cultures pending, preliminary blood cultures negative. Maintaining O2 sats in the low 90s on room air. Objective - Vital Signs Vital signs: Vital Signs Temp 98.1 F 05/25/17 15:00 Pulse 84 05/25/17 17:16 Resp 16 05/25/17 15:00 BP 156/89 05/25/17 15:00 Pulse Ox 94 L 05/25/17 15:00 Intake & Output 05/25/17 05/25/17 05/26/17 06:59 18:59 06:59 Other: Voiding Method Toilet Toilet # Voids 1 4 - Exam Patient is sitting up in the bed comfortably, no acute distress, awake alert and oriented.. HEENT: Normocephalic. Neck is supple. Pupils reactive. Nostrils clear. Oral mucosa moist Neck reveals no JVD, carotid bruits, or thyromegaly. CHEST EXAMINATION: Trachea is central. Symmetrical expansion. Right upper lobe bronchial sounds and left basilar crackles. No wheezing CARDIAC: Normal S1, S2 with no gallops. No murmurs ABDOMEN: Soft. Bowel sounds normal. No organomegaly. No abdominal bruits. Extremities: reveal no edema. No clubbing or cyanosis Neurologically awake, alert, oriented x3 with well-coordinated movements. No focal deficits noted Skin: No rash or skin lesions. Psychiatric: Coperative. Nonsuicidal Musculoskeletal: No joint swelling or deformity. Normal range of motion. - Labs CBC & Chem 7: 05/26/17 08:21 05/26/17 08:21 Labs: Microbiology - Last 24 Hours (Table) 05/23/17 16:38 Blood Culture - Preliminary Blood No Growth after 48 hours 05/23/17 16:18 Blood Culture - Preliminary Blood No Growth after 48 hours Assessment and Plan Assessment: Multifocal pneumonia with failed outpatient therapy for community-acquired pneumonia Hypertension Hyperlipidemia Borderline obstructive sleep apnea. CPAP not recommended about 5 years ago Morbid obesity with BMI 35.9 Anxiety History of smoking DVT prophylaxis Plan: Continue on current medication regime ,monitoring and symptomatic treatment. Follow cultures closely. Maintain Levaquin, vancomycin. Follow closely with pulmonary. F/U Chest x-ray in a.m. Discharge planning in progress for tomorrow pending pulmonary clearance. Increase ambulation as tolerated. The impression and plan of care has been dictated as directed. : I performed a history and examination of this patient, discussed the same with the dictator. I agree with the dictator's note ,documented as a scribe. Any additional findings or plans will be noted.
--- NOTE | 2017-05-26 18:03 | P.PN ---
Subjective Progress Note Date: 05/26/17 Progress note being dictated for Dr. 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 Onofre's office due to failed outpatient therapy for pneumonia. Patient presented to clinic with complaints of fever and generalized body aches along with shortness of breath. Patient initially had upper respiratory infection and flulike symptoms with body aches, congestion and shortness of breath on 11/2017 and went to urgent care clinic. Flu test strips were not available at the time and patient was sent home with Tamiflu. On 05/20/2017 patient's symptoms have progressed and was started having cough fevers and worsening body aches. Patient presented to ER where he had chest x-ray showed right upper lobe pneumonia. Patient was given a dose of Rocephin and sent home on Z-Yonatan. Patient's symptoms have not been completely resolved and presented to his PCPs office and repeat chest x-ray was done showed multifocal pneumonia. Patient was sent to Hospital for further management. Patient was started on vancomycin and Levaquin. T-max was 100.2. 05/25/17 maintained on Levaquin and vancomycin. breathing improving, reports productive cough with green/brn sputum. Ambulating in room, tolerating increase in exertion well. Afebrile. Sputum cultures pending, preliminary blood cultures negative. Maintaining O2 sats in the low 90s on room air. 05/26/17 chest x-ray reporting increased density in the right upper lobe and left lower lobe. Breathing continues to improve, less productive cough with minimal brown sputum. Ambulating, tolerating exertion better. Afebrile. Objective - Vital Signs Vital signs: Vital Signs Temp 97.4 F L 05/26/17 15:00 Pulse 78 05/26/17 16:24 Resp 16 05/26/17 15:00 BP 143/79 05/26/17 15:00 Pulse Ox 91 L 05/26/17 15:00 Intake & Output 05/25/17 05/26/17 05/26/17 18:59 06:59 18:59 Other: Voiding Method Toilet Toilet Toilet # Voids 4 2 1 - Exam Patient is sitting up in the bed comfortably, no acute distress, awake alert and oriented.. HEENT: Normocephalic. Neck is supple. Pupils reactive. Nostrils clear. Oral mucosa moist Neck reveals no JVD, carotid bruits, or thyromegaly. CHEST EXAMINATION: Trachea is central. Symmetrical expansion. Right upper lobe bronchial sounds and minimal fine left basilar crackles. No wheezing CARDIAC: Normal S1, S2 with no gallops. No murmurs ABDOMEN: Soft. Bowel sounds normal. No organomegaly. No abdominal bruits. Extremities: reveal no edema. No clubbing or cyanosis Neurologically awake, alert, oriented x3 with well-coordinated movements. No focal deficits noted Skin: No rash or skin lesions. Psychiatric: Coperative. Nonsuicidal Musculoskeletal: No joint swelling or deformity. Normal range of motion. Microbiology 05/23/17 19:50 Sputum Gram Stain - Final 05/23/17 19:50 Sputum Sputum Culture - Final 05/23/17 16:38 Blood Blood Culture - Preliminary No Growth after 48 hours 05/23/17 16:18 Blood Blood Culture - Preliminary No Growth after 48 hours - Labs CBC & Chem 7: 05/26/17 08:21 05/26/17 08:21 Labs: Abnormal Lab Results - Last 24 Hours (Table) 05/26/17 05/26/17 Range/Units 08:21 08:21 Hgb 11.9 L (13.0-17.5) gm/dL Hct 38.5 L (39.0-53.0) % MCHC 30.9 L (31.0-37.0) g/dL Metamyelocytes # (Man) 0.19 H (0) k/uL Myelocytes # (Manual) 0.48 H (0) k/uL Glucose 105 H (74-99) mg/dL AST 69 H (17-59) U/L ALT 88 H (21-72) U/L Alkaline Phosphatase 223 H (38-126) U/L Total Protein 5.9 L (6.3-8.2) g/dL Albumin 3.1 L (3.5-5.0) g/dL Microbiology - Last 24 Hours (Table) 05/23/17 19:50 Gram Stain - Final Sputum Sputum Culture - Final 05/23/17 16:38 Blood Culture - Preliminary Blood No Growth after 48 hours 05/23/17 16:18 Blood Culture - Preliminary Blood No Growth after 48 hours Assessment and Plan Assessment: Multifocal pneumonia with failed outpatient therapy for community-acquired pneumonia Hypertension Hyperlipidemia Borderline obstructive sleep apnea. CPAP not recommended about 5 years ago Morbid obesity with BMI 35.9 Anxiety History of smoking DVT prophylaxis Plan: Continue on current medication regime ,monitoring and symptomatic treatment. Maintain Levaquin, vancomycin. Cultures pending. Increase activity as tolerated .Follow closely with pulmonary. Discharge planning in progress for tomorrow pending pulmonary clearance. Increase ambulation as tolerated. The impression and plan of care has been dictated as directed. : I performed a history and examination of this patient, discussed the same with the dictator. I agree with the dictator's note ,documented as a scribe. Any additional findings or plans will be noted.
[2017-05-26] MEDS: ESCITALOPRAM 10 MG TAB PO SCH (21:13)
[2017-05-26] MEDS: ALPRAZolam 0.25 MG TAB PO PRN (21:13)
[2017-05-26] MEDS: ACETAMINOPHEN TAB 325 MG TAB PO PRN (22:53)
[2017-05-27] MEDS: VANCOMYCIN 1,750 MG in SODIUM CHLORIDE 0.9% 250 ML IVPB SCH ×3 (00:30→16:01)
[2017-05-27] MEDS: ENOXAPARIN 40 MG/0.4 ML SYRINGE SQ SCH (07:12)
[2017-05-27] MEDS: METOPROLOL TARTRATE 25 MG TAB PO SCH (07:13)
[2017-05-27] MEDS: PANTOPRAZOLE 40 MG TABLET PO SCH (07:13)
[2017-05-27] MEDS: IPRATROPIUM-ALBUTEROL 3 ML NEB INHALATION SCH ×3 (08:28→16:01)
[2017-05-27 09:14] LABS: Anion Gap 13 mmol/L; Blood Urea Nitrogen 16 mg/dL (9-20); Calcium 8.9 mg/dL (8.4-10.2); Carbon Dioxide 26 mmol/L (22-30); Chloride 105 mmol/L (98-107); Glucose 84 mg/dL (74-99); Potassium 4.1 mmol/L (3.5-5.1); Sodium 144 mmol/L (137-145)
--- NOTE | 2017-05-27 13:05 | P.PN ---
Subjective Progress Note Date: 05/27/17 Principal diagnosis: Multilobar pneumonia Ori is a 42-year-old white male patient of Dr. Onofre, has been having ongoing symptoms of high fevers, nonproductive cough, generalized body aches, shortness of breath, and fatigue for about a week. His symptoms started on 08/2017 and he was seen in an urgent clinic, was given Tamiflu for his symptoms , but he was not checked for the flu. By 05/20/2017, patient's symptoms have progressed, patient was increasingly more fatigued, short winded, and was having breakthrough high fevers despite alternating Tylenol and ibuprofen. Patient was seen at the [facility] ED or his ongoing fevers, and progressing cough. The body aches and the headache had subsided by that time. Chest x-ray taken in the ED department on 05/20/2017 showed evidence of right upper lobe pneumonia. Patient was given Rocephin IM and was given a Z-Yonatan, prescription cough syrup and albuterol inhaler and was told to follow up with Dr. nOofre on 05/24/2017. When seen by Dr. Onofre in the office on , chest x-ray taken in the office showed acute multifocal pneumonia involving the right upper lobe, lingula and left lower lobe. A recommendation was made for inpatient treatment with IV antibiotics, including vancomycin and Levaquin. Patient was admitted to the regular medical surgical floor for further treatment. Blood cultures and sputum cultures were collected and sent, and pending at this time. Patient did have low-grade fevers, with T-max of 100.2F. Lab work showed WBC of 10.0, hemoglobin of 11.7, electrolyte profile was within normal limits, normal renal profile, BUN is 17, creatinine 0.80. Patient was started on IV vancomycin, Levaquin, DuoNeb nebulized treatments. He remains on room air, with O2 sat between 90 and 92%. Other medical problems include essential hypertension, hypercholesterolemia, obesity and obstructive sleep apnea syndrome. Patient had a sleep study [address] Candelario, and was told he has a borderline IRENE, no CPAP device was described at that time. On today's evaluation, patient states feeling better, still has the cough , which is mostly dry, but was able to reduce a specimen for sputum culture. No fever this morning. On 05/25/2017 patient seen again in follow-up. He continues to improve, he states he has more energy today, not as fatigued, starting to expectorate some brown colored sputum. He has been ambulating within the room, tolerating it well. Lung sounds are positive for coarse rales over left posterior lower lobe , clear over the right lung. No wheezes or rhonchi auscultated. Afebrile last 24 hours, he is currently on room air, with pulse ox at 91%. His other vitals are stable. Blood cultures show no growth at the 24-hour ute. Sputum cultures pending. Patient remains on a combination of vancomycin and Levaquin. On 05/26/2017 patient continues to improve. His energy level is not back to the baseline yet however significantly improved from admission. Lung sounds also show improvement, left lower lobe is positive for just a few rales, right upper lobe is positive for bronchial sounds. Vital signs are stable, patient is afebrile, microbiology results showed no growth on the blood cultures and the sputum cultures. Patient remains on a combination of Levaquin and vancomycin. Today's chest x-ray was reviewed, and the findings were compatible with increased density in the right upper lobe, and left lower lobe. Patient has been ambulating within the room, has gotten up to the bathroom and to take a shower, tolerated activity fairly well. His appetite is not back to normal yet, however it's improving. Patient was reevaluated today on 05/27/2017, feeling much better, breathing a lot easier, energy level seems to be better, presently afebrile, and in no form of respiratory distress. Labs from yesterday were all reviewed. Hence I plan to send the patient home today on Levaquin, and have a close follow-up in my office within the next 10 days. Objective - Vital Signs Vital signs: Vital Signs Temp 97.3 F L 05/27/17 07:00 Pulse 80 05/27/17 08:39 Resp 18 05/27/17 07:00 BP 149/86 05/27/17 07:00 Pulse Ox 96 05/27/17 08:30 Intake & Output 05/26/17 05/27/17 05/27/17 18:59 06:59 18:59 Intake Total 955 Balance 955 Intake: Oral 955 Other: Voiding Method Toilet Toilet # Voids 1 2 # Bowel Movements 1 - Exam GENERAL EXAM: Alert, active, comfortable in no apparent distress. HEAD: Normocephalic/atraumatic. EYES: Normal reaction of pupils, equal size. Conjunctiva pink, sclera white. NOSE: Clear with pink turbinates. THROAT: No erythema or exudates. NECK: No masses, no JVD, no thyroid enlargement, no adenopathy. CHEST: No chest wall deformity. Symmetrical expansion. LUNGS: Equal air entry with a few diminished rales over left posterior lower lobe, otherwise lungs are clear CVS: Regular rate and rhythm, normal S1 and S2, no gallops, no murmurs, no rubs ABDOMEN: Soft, nontender. No hepatosplenomegaly, normal bowel sounds, no guarding or rigidity. EXTREMITIES: No clubbing, no edema, no cyanosis, 2+ pulses and upper and lower extremities. MUSCULOSKELETAL: Muscle strength and tone normal. SPINE: No scoliosis or deformity SKIN: No rashes CENTRAL NERVOUS SYSTEM: Alert and oriented -3. No focal deficits, tone is normal in all 4 extremities. PSYCHIATRIC: Alert and oriented -3. Appropriate affect. Intact judgment and insight. - Labs CBC & Chem 7: 05/26/17 08:21 05/27/17 07:42 Labs: Microbiology - Last 24 Hours (Table) 05/23/17 16:38 Blood Culture - Preliminary Blood No Growth after 72 hours 05/23/17 16:18 Blood Culture - Preliminary Blood No Growth after 72 hours 05/23/17 19:50 Gram Stain - Final Sputum Sputum Culture - Final Assessment and Plan Assessment: #1. Acute multilobar pneumonia involving the right upper lobe, lingula, and left lower lobe. This is a community-acquired pneumonia with failed outpatient therapy #2. Essential hypertension #3. Obstructive sleep apnea, currently not on CPAP therapy. Last sleep study was done 5 years ago, patient was told he is borderline, and no CPAP device was prescribed. This will be followed up on outpatient basis #4. Obesity #5. Hypercholesterolemia #6. Anxiety #7. Former smoker, quit in 2008, prior to that only smoked for 4 years, on and off, with one pack of cigarettes lasting 2 weeks #8. History of left breast cyst removal #9. History of vasectomy Recommendation: Patient will be placed on oral Levaquin 750 mg daily for 1 week , we'll discharge the patient home today, and reevaluate the patient in 10 days Time with Patient: Less than 30
[2017-05-27 15:01] VITALS: BP 138/85; TEMP 98.1
[2017-05-27] MEDS: LEVOFLOXACIN 750 MG TAB PO SCH (15:02)
[2017-05-27 15:05] VITALS: RESP 16
[2017-05-27 16:11] VITALS: PULSE 80
--- NOTE | 2017-05-27 19:46 | P.DS ---
Providers Date of admission: 05/23/17 14:58 Expected date of discharge: 05/27/17 Attending physician: Keshawn Eldridge Consults: 05/23/17 15:37 Consult Physician Routine Consulting Provider: Carter Solorzano Reason/Comments: Multifocal pneumonia Do you want consulting provider notified?: Already Contacted Primary care physician: Adele Onofre Hospital Course: Final Diagnoses: Multifocal pneumonia with failed outpatient therapy for community-acquired pneumonia Hypertension Hyperlipidemia Borderline obstructive sleep apnea. CPAP not recommended about 5 years ago Morbid obesity with BMI 35.9 Anxiety History of smoking Hospital course:Patient is a 42-year-old male with a known history of hypertension, hyperlipidemia, borderline obstetric sleep apnea not on CPAP was sent from Dr. Onofre's office due to failed outpatient therapy for pneumonia. Patient presented to clinic with complaints of fever and generalized body aches along with shortness of breath. Patient initially had upper respiratory infection and flulike symptoms with body aches, congestion and shortness of breath on 05/19/2017 and went to urgent care clinic. Flu test strips were not available at the time and patient was sent home with Tamiflu. On 05/20/2017 patient's symptoms have progressed and was started having cough fevers and worsening body aches. Patient presented to ER where he had chest x-ray showed right upper lobe pneumonia. Patient was given a dose of Rocephin and sent home on Z-Yonatan. Patient's symptoms have not been completely resolved and presented to his PCPs office and repeat chest x-ray was done showed multifocal pneumonia. Patient was sent to Hospital for further management. Evaluated by pulmonary. Patient was started on vancomycin and Levaquin. Maintained on nebulized bronchodilators, steroids. Significant clinical improvement. Patient has been cleared for discharge by pulmonary. Patient is being discharged home in a stable condition with guarded prognosis. Physical Exam: GENERAL: VSS, no acute distress, A & O X 3.CHEST EXAMINATION: minimal fine left basilar crackles. CARDIAC: Normal S1, S2 with no gallops. No murmurs ABDOMEN: Soft. Bowel sounds normal. No organomegaly. Positive bowel sounds. Neurologically:No focal deficits noted Microbiology 05/23/17 16:38 Blood Blood Culture - Preliminary No Growth after 96 hours 05/23/17 16:18 Blood Blood Culture - Preliminary No Growth after 96 hours 05/23/17 19:50 Sputum Gram Stain - Final 05/23/17 19:50 Sputum Sputum Culture - Final The impression and plan of care has been dictated as directed. : I performed a history and examination of this patient, discussed the same with the dictator. I agree with the dictator's note ,documented as a scribe. Any additional findings or plans will be noted. Time taken: 35 minutes Patient Condition at Discharge: Stable Plan - Discharge Summary New Discharge Prescriptions: New Levofloxacin [Levaquin] 750 mg PO DAILY 7 Days #7 tab Metoprolol Tartrate [Lopressor] 25 mg PO BID #60 tab Pantoprazole [Protonix] 40 mg PO AC-BRKFST #15 tablet.dr Nely Escitalopram [Lexapro] 10 mg PO HS ALPRAZolam [Xanax] 0.25 mg PO HS PRN PRN Reason: Anxiety Albuterol Inhaler [Ventolin Hfa Inhaler] 1 - 2 puff INHALATION Q6HR PRN #1 inhaler PRN Reason: Shortness Of Breath Acetaminophen Tab [Tylenol] 1,000 mg PO Q6HR PRN PRN Reason: Fever And/ Or Pain Azithromycin [Zithromax Z-pack] See Taper PO DAILY Aspirin/Acetaminophen/Caffeine [Excedrin Extra Strength Caplet] 1 tab PO Q6H PRN PRN Reason: Pain Discontinued Metoprolol Tartrate [Lopressor] 25 mg PO HS [id number] 6.25-5-10Mg/5Ml [Phenergan VC with Codeine] 5 ml PO TID #120 ml Ibuprofen [Motrin Ib] 400 mg PO Q6H PRN PRN Reason: Fever And/ Or Pain Discharge Medication List ALPRAZolam [Xanax] 0.25 mg PO HS PRN 05/20/17 [History] Albuterol Inhaler [Ventolin Hfa Inhaler] 1 - 2 puff INHALATION Q6HR PRN #1 inhaler 05/20/17 [Rx] Escitalopram [Lexapro] 10 mg PO HS 05/20/17 [History] Acetaminophen Tab [Tylenol] 1,000 mg PO Q6HR PRN 05/23/17 [History] Aspirin/Acetaminophen/Caffeine [Excedrin Extra Strength Caplet] 1 tab PO Q6H PRN 05/23/17 [History] Azithromycin [Zithromax Z-pack] See Taper PO DAILY 05/23/17 [History] Levofloxacin [Levaquin] 750 mg PO DAILY 7 Days #7 tab 05/26/17 [Rx] Metoprolol Tartrate [Lopressor] 25 mg PO BID #60 tab 05/27/17 [Rx] Pantoprazole [Protonix] 40 mg PO AC-BRKFST #15 tablet. 05/27/17 [Rx] Follow up Appointment(s)/Referral(s): Francisco Javier Onofre MD [STAFF PHYSICIAN] - 06/06/17 3:45 pm Ambulatory/Diagnostic Orders: Complete Blood Count w/diff [LAB.AMB] Time Frame: 3 Days, Location: Determined By Patient Patient Instructions/Handouts: Pneumonia (DC) Discharge Disposition: HOME SELF-CARE
== END 2017-05-27 16:15 | disposition home or self-care (01) | DRG 195 ==
LOC: 4MS4W 14:58
PROVIDERS: ADMIT Hospitalist; ATTEND Hospitalist
DX: J18.9 Pneumonia, unspecified organism (principal); E66.01 Morbid (severe) obesity due to excess calories; E78.5 Hyperlipidemia, unspecified; G47.33 Obstructive sleep apnea (adult) (pediatric); I10 Essential (primary) hypertension; Z68.35 Body mass index [BMI] 35.0-35.9, adult; F41.9 Anxiety disorder, unspecified; Z87.891 Personal history of nicotine dependence; Z79.899 Other long term (current) drug therapy; Z88.0 Allergy status to penicillin; Z88.2 Allergy status to sulfonamides
CPT/HCPCS: 71046; 80048; 80053; 80202; 85025; 87040; 87070; 87205; 87324; 87449; 94640; 94760

== ENCOUNTER → 2017-05-30 | Outpatient (CLI) | payer BC ==
[2017-05-30 12:15] LABS: Anion Gap 14 mmol/L; Blood Urea Nitrogen 30 mg/dL (9-20); Calcium 9.9 mg/dL (8.4-10.2); Carbon Dioxide 27 mmol/L (22-30); Chloride 103 mmol/L (98-107); Glucose 92 mg/dL (74-99); Potassium 5.5 mmol/L (3.5-5.1); Sodium 144 mmol/L (137-145)
[2017-05-30 12:37] LABS: HCT 46.4 % (39.0-53.0); HGB 14.6 gm/dL (13.0-17.5); Hypochromasia Slight; MCH 26.6 pg (25.0-35.0); MCHC 31.4 g/dL (31.0-37.0); MCV 84.9 fL (80.0-100.0); Mean Platelet Volume 6.8; Platelet Count 535 k/uL (150-450); RBC 5.47 m/uL (4.30-5.90); RDW 12.9 % (11.5-15.5); WBC 9.7 k/uL (3.8-10.6)
[2017-05-30 14:30] LABS: Band Neutrophils % 2 %; Eosinophils # (M) 0.29 k/uL (0-0.7); Lymphocytes # (M) 2.23 k/uL (1.0-4.8); Metamyelocytes % 1 %; Monocytes # (M) 0.39 k/uL (0-1.0); Myelocytes # (M) 0.29 k/uL (0); Myelocytes % 3 %; Neutrophils % (M) 66 %; Nucleated Red Blood Cells 0 /100 WBC (0-0); Total Cells Counted 200
== END | disposition home or self-care (01) ==
LOC: LABWHC1 10:55
PROVIDERS: ATTEND Nurse Practitioner
DX: J18.9 Pneumonia, unspecified organism (principal)
CPT/HCPCS: 36415; 80048; 85025

== ENCOUNTER → 2018-07-13 | Outpatient (CLI) | payer BC ==
[2018-07-13 11:10] LABS: Basophils # (A) 0.1 k/uL (0-0.2); Basophils % (A) 1 %; Eosinophils # (A) 0.1 k/uL (0-0.7); Eosinophils % (A) 3 %; HCT 42.7 % (39.0-53.0); HGB 14.5 gm/dL (13.0-17.5); Lymphocytes # (A) 1.5 k/uL (1.0-4.8); Lymphocytes % (A) 29 %; MCH 27.2 pg (25.0-35.0); MCHC 33.9 g/dL (31.0-37.0); MCV 80.2 fL (80.0-100.0); Mean Platelet Volume 7.9; Monocytes # (A) 0.3 k/uL (0-1.0); Monocytes % (A) 6 %; Neutrophils % (A) 60 %; Platelet Count 254 k/uL (150-450); RBC 5.32 m/uL (4.30-5.90); RDW 13.3 % (11.5-15.5); WBC 5.1 k/uL (3.8-10.6)
[2018-07-13 11:17] LABS: Appearance,Urine Clear (Clear); Bilirubin,Urine Negative (Negative); Blood,Urine Negative (Negative); Color,Urine Yellow; Glucose,Urine (UA) Negative (Negative); Ketones,Urine Negative (Negative); Leukocyte Esterase,Urine Negative (Negative); Nitrite,Urine Negative (Negative); PH, Urine 6.5 (5.0-8.0); Protein,Urine Negative (Negative); Specific Gravity,Urine 1.025 (1.001-1.035); Urobilinogen,Urine <2.0 mg/dL (<2.0)
[2018-07-13 12:17] LABS: Erythrocyte Sedimentation Rate 15 mm/hr (0-15)
[2018-07-13 16:43] LABS: Vitamin D 25 Hydroxy 27.2 ng/mL (30.0-100.0)
[2018-07-13 16:49] LABS: Albumin 4.8 g/dL (3.80-4.90); Albumin/Globulin Ratio 2.09 (1.60-3.17); Anion Gap 7.3 mmol/L (4.00-12.00); Calcium 9.6 mg/dL (8.7-10.3); Carbon Dioxide 26.7 mmol/L (21.6-31.8); Globulin 2.3 g/dL (1.6-3.3); LDL Cholesterol,Calculated 178.8 mg/dL (0.0-131.0); Total Bilirubin 0.6 mg/dL (0.3-1.2); Total Protein 7.1 g/dL (6.2-8.2); VLDL Calculation 28.2 mg/dL (5.00-40.00)
[2018-07-13 17:02] LABS: Hepatitis A Antibody IgM Non-Reactive (Non-Reactive); Hepatitis B Core IgM Non-Reactive (Non-Reactive)
== END ==
LOC: LABWHC1 09:42
PROVIDERS: ATTEND Internal Medicine
DX: E78.5 Hyperlipidemia, unspecified (principal); I10 Essential (primary) hypertension; N39.0 Urinary tract infection, site not specified; E29.1 Testicular hypofunction; R53.1 Weakness; R53.83 Other fatigue
CPT/HCPCS: 36415; 80053; 80061; 80074; 81003; 82306; 82533; 82607; 84403; 84439; 84443; 85025; 85652; 86038; 87086

== ENCOUNTER → 2018-12-14 | Outpatient (CLI) | payer BC ==
[2018-12-14 16:04] LABS: ALT 39 U/L (10-49); AST 31 U/L (14-35); Albumin/Globulin Ratio 2.61 (1.60-3.17); Alkaline Phosphatase 92 U/L (41-126); Bilirubin, Conjugated <0.20 mg/dL (0.20-0.40); Chol/HDL Ratio 4.19; Cholesterol 176 mg/dL (0-200); Globulin 1.8 g/dL (1.6-3.3); LDL Cholesterol,Calculated 111.8 mg/dL (0.0-131.0); Total Bilirubin 0.4 mg/dL (0.2-1.2); Total Protein 6.5 g/dL (6.2-8.2)
== END | disposition home or self-care (01) ==
LOC: LABWHC1 08:43
PROVIDERS: ATTEND Internal Medicine
DX: E78.5 Hyperlipidemia, unspecified (principal)
CPT/HCPCS: 36415; 80061; 80076

== ENCOUNTER → 2020-06-27 | Outpatient (CLI) | payer BC ==
--- NOTE | 2020-06-27 16:49 | CT ---
EXAMINATION TYPE: CT abdomen pelvis wo con DATE OF EXAM: 06/27/2020 COMPARISON: None HISTORY: RLQ pain CT DLP: 1204.5 mGycm Automated exposure control for dose reduction was used. Lung bases are clear. There is no pleural effusion. Heart size is normal. There is no pericardial eff usion. Liver spleen stomach pancreas gallbladder appear normal. The bile ducts are not dilated. There is no adrenal mass. The kidneys have normal size. There is no hydronephrosis. Ureters are not d ilated. There is no retroperitoneal adenopathy. Bladder distends smoothly. There is no inguinal herni a. There is no free fluid in the pelvis. There is no sign of a pelvic mass. Appendix is normal. There is no mesenteric edema. There is no ascites or free air. There is no bowel obstruction. There is no evidence of renal calculus. The lumbar vertebra have normal spacing and alignment. Posterior elements are intact. There is no com pression fracture. The bony pelvis is intact. Hip joints appear normal. IMPRESSION: Normal appendix. Negative CT scan abdomen and pelvis.
== END ==
LOC: RADCTMAIN 15:52
PROVIDERS: ATTEND Family Medicine
DX: R10.31 Right lower quadrant pain (principal)
CPT/HCPCS: 74176

== ENCOUNTER → 2020-07-15 | Outpatient (CLI) | payer BC ==
--- NOTE | 2020-07-15 14:54 | NM ---
EXAMINATION TYPE: NM hepatobiliary w EF DATE OF EXAM: 07/15/2020 COMPARISON: NONE HISTORY: R10.9 abdominal pain TECHNIQUE: After the intravenous administration of 3.76 mCi Tc 99m Mebrofenin hepatobiliary scintigra phy is performed. Immediate images post injection. FINDINGS: There is satisfactory initial accumulation of tracer by the liver. The gallbladder is visualized wit hin 8 minutes. The small bowel activity is noted within 14 minutes. At one hour 8 ounces of oral en sure plus is given to mimic CCK and gallbladder ejection fraction is calculated at 48 %, in the [place] l range. Therefore there is no scintigraphic evidence of cystic or common bile duct obstruction to s uggest acute cholecystitis or gallbladder dyskinesia. IMPRESSION: Exam is within normal limits.
== END | disposition home or self-care (01) ==
LOC: RADNMMAIN 12:35
PROVIDERS: ATTEND Nurse Practitioner Family
DX: R10.9 Unspecified abdominal pain (principal)
CPT/HCPCS: 78226; A9537

== ENCOUNTER 2020-08-26 08:16 | Day surgery (SDC) | payer BC ==
[2020-08-25 12:15] VITALS: BMI 37.3
[~2020-08-26 08:16] MED LIST: ONDANSETRON 4 MG/2 ML VIAL IVP PRN
[2020-08-26] MEDS: LACTATED RINGERS 1,000 ML IV SCH ×2 (08:31→08:50)
[2020-08-26 08:38] VITALS: RESP 16; TEMP 97.8
[2020-08-26] MEDS ORDERED: LIDOCAINE 1% (10MG/ML) FOR IV START INTRADERMA ONE (08:52)
[2020-08-26] MEDS ORDERED: PROPOFOL 10 MG/ML 20 ML VIAL IV ONE (09:10)
[2020-08-26] MEDS ORDERED: LIDOCAINE 1% INJ 10MG/ML (20 ML MDV) ONE (09:10)
--- NOTE | 2020-08-26 09:48 | P.PCN ---
Date of Procedure: 08/26/20 Description of Procedure: Brief history: Patient is a 45-year-old male presenting for outpatient EGD and colonoscopy for evaluation of epigastric pain and change in bowel habits. He was seen in the GI clinic reporting stomachache with occasional heartburn. He had reported symptoms of feeling bloated and gassy. He reported some slowing of his bowel movements after starting PPI and H2 therapy. No prior EGD or colonoscopy. Mother is a history of Crohn's disease. Procedure performed: Esophagogastroduodenoscopy with biopsy Colonoscopy with polypectomy and biopsy Estimated blood loss: Minimal. Preoperative diagnosis: Epigastric abdominal pain, change in bowel habits, no prior colonoscopy Anesthesia: [facility] Procedure: After informed consent was obtained from the patient was brought into the endoscopy unit and IV sedation was administered by anesthesia under continuous monitoring. Initially upper endoscopy was done. The Olympus GF 190 video endoscope was inserted into the mouth and esophagus intubated without any difficulty and was gradually advanced into the stomach and duodenum and carefully examined. The bulb and second part of the duodenum appeared normal, with biopsies taken to rule out celiac sprue. The scope was then withdrawn into the stomach adequately insufflated with air and upon careful examination the antrum and body, cardia and fundus appeared normal, with biopsies taken to rule out Helicobacter pylori. The scope was then withdrawn into the esophagus. The GE junction was located at 38 cm to the incisors. It appeared regular with no erythema erosions or ulcerations. Rest of the esophagus appeared normal, with biopsies of the lower esophagus taken. Patient tolerated the procedure well. At this time the patient continued to remain sedation. Initial digital rectal examination was normal. Olympus CF 190 video colonoscope was then inserted into the rectum and gradually advanced to the cecum without any difficulty. Careful examination was performed as the scope was gradually being withdrawn. The prep was excellent. The cecum, ascending colon, transverse colon, descending colon, sigmoid colon and rectum appeared normal, with a sessile 5 mm transverse colon polyp removed with cold snare polypectomy. Terminal ileum was intubated and appeared normal biopsies taken. Biopsies of the right and left colon in the setting of altered bowel function. Retroflexion was performed in the rectum and no lesions were noted, low-grade internal hemorrhoids. Patient tolerated the procedure well. Impression: 1. Normal upper endoscopy with no erosions, ulcerations or other abnormalities noted. Random biopsies taken of the duodenum, antrum and body and lower esophagus. 2. Transverse colon polyp removed with cold snare polypectomy. Internal hemorrhoids. Random biopsies taken of the terminal ileum, right and left colon in the setting of altered bowel function. Otherwise normal-appearing colon from rectum to cecum and normal-appearing terminal ileum. Recommendations: Findings of this examination were discussed with the patient as well as his family. Okay to resume diet. Okay to resume medications. We pathology from polypectomy and biopsies. Recommend repeat colonoscopy in 7 years for screening pending pathology from polypectomy.
[2020-08-26 10:19] VITALS: PULSE 94
[2020-08-26 10:20] VITALS: BP 112/76
== END 2020-08-26 10:29 | disposition home or self-care (01) ==
LOC: ORWHC2ENDO 08:16
PROVIDERS: ATTEND Internal Medicine
DX: K63.5 Polyp of colon (principal); K64.8 Other hemorrhoids; K29.50 Unspecified chronic gastritis without bleeding; Z87.891 Personal history of nicotine dependence; I10 Essential (primary) hypertension; E78.5 Hyperlipidemia, unspecified; F41.9 Anxiety disorder, unspecified; K21.9 Gastro-esophageal reflux disease without esophagitis; Z98.890 Other specified postprocedural states; Z79.899 Other long term (current) drug therapy; Z88.0 Allergy status to penicillin; Z88.2 Allergy status to sulfonamides
CPT/HCPCS: 88305; 45380; 45385; 43239; J2001; J2704

== ENCOUNTER 2020-11-08 09:55 | Emergency (ER) | payer BC ==
[2020-11-08 10:00] VITALS: BP 131/78; PULSE 77; RESP 18; TEMP 98.1
--- NOTE | 2020-11-08 10:19 | ED ---
URI HPI - General Chief Complaint: Upper Respiratory Infection Stated Complaint: Sore Throat Time Seen by Provider: 11/08/20 10:00 Source: patient, RN notes reviewed Mode of arrival: ambulatory Limitations: no limitations - History of Present Illness Initial Comments: Is a 45-year-old male with a history of epiglottitis about 10 years ago states he's been developing a sore throat for the past several days. He's had postnasal drip he also has some discomfort in his ears. He's had chills but no fevers or sweats. He states he normally uses CPAP machine but did not use when the other night and was snoring a lot. No overt cough or phlegm production no chest pain he also states he feels some sinus pressure. No other complains modifying factors at this time MD Complaint: sore throat - Related Data Home Medications Medication Instructions Recorded Confirmed Escitalopram [Lexapro] 10 mg PO HS 05/20/17 08/26/20 Simvastatin [Zocor] 20 mg PO HS 08/25/20 08/26/20 Previous Rx's Medication Instructions Recorded Metoprolol Tartrate [Lopressor] 25 mg PO BID #60 tab 05/27/17 Pantoprazole [Protonix] 40 mg PO AC-BRKFST #15 tablet. 05/27/17 Clindamycin [Cleocin] 300 mg PO Q6H #40 cap 11/08/20 Dexamethasone [Decadron] 4 mg PO BID #10 tablet 11/08/20 Allergies Allergy/AdvReac Type Severity Reaction Status Date / Time Penicillins Allergy Unknown Verified 11/08/20 09:56 Sulfa (Sulfonamide Allergy Rash/Hives Verified 11/08/20 09:56 Antibiotics) Review of Systems ROS Statement: Those systems with pertinent positive or pertinent negative responses have been documented in the HPI. ROS Other: All systems not noted in ROS Statement are negative. Past Medical History Past Medical History: GERD/Reflux, Hyperlipidemia, Hypertension, Pneumonia Additional Past Medical History / Comment(s): pneumonia 2018, abd. & back pain going on for 2 months, bloating, full feeling upper abd., recent CT scan & Hida scan-both wnl History of Any Multi-Drug Resistant Organisms: None Reported Past Surgical History: No Surgical Hx Reported Additional Past Surgical History / Comment(s): vasectomy, cyst removed from left breast Past Anesthesia/Blood Transfusion Reactions: No Reported Reaction Past Psychological History: Anxiety Smoking Status: Current some day smoker Past Alcohol Use History: Occasional Past Drug Use History: None Reported - Past Family History Father Family Medical History: Cancer Mother Family Medical History: Diabetes Mellitus, Hypertension Additional Family Medical History / Comment(s): chrons, diverticulosis, General Exam - General Exam Comments Initial Comments: This is a well-developed well-nourished awake alert oriented 3 male Limitations: no limitations General appearance: alert, in no apparent distress Head exam: Present: atraumatic, normocephalic, normal inspection Eye exam: Present: normal appearance, PERRL, EOMI. Absent: scleral icterus, conjunctival injection, periorbital swelling ENT exam: Present: other (I was here pharyngeal hyperemia no exudate seen. Mild dullness to both tympanic membranes no overt exudate or erythema. No tenderness to percussion over the sinuses) Neck exam: Present: normal inspection, tenderness (Tenderness to the anterior cervical chain bilaterally.), full ROM, other (No stridor JVD or bruits) Respiratory exam: Present: normal lung sounds bilaterally. Absent: respiratory distress, wheezes, rales, rhonchi, stridor GI/Abdominal exam: Present: soft, normal bowel sounds. Absent: distended, tenderness, guarding, rebound, rigid Back exam: Present: full ROM Neurological exam: Present: alert, oriented X3, CN II-XII intact Psychiatric exam: Present: normal affect, normal mood Skin exam: Present: warm, dry, intact, normal color. Absent: rash Course Vital Signs 11/08/20 09:56 Temperature 98.1 F Pulse Rate 77 Respiratory 18 Rate Blood Pressure 131/78 O2 Sat by Pulse 96 Oximetry Medical Decision Making - Medical Decision Making I did discuss the findings with the patient. Patient does have ALLERGIES to penicillin and sulfa he'll be placed on clindamycin as well as a short course of Decadron. We did a long discussion regarding S also cautions with hot beverages and food. Return parameters discussed. The presentation consistent with sinusitis with postnasal drip - Lab Data Lab Results 11/08/20 Range/Units 10:18 Group A Strep Rapid Negative (Negative) - Radiology Data Radiology results: report reviewed (Imaging reviewed as well as report possible prominence of the epiglottis noted. No other significant findings), image reviewed Disposition Clinical Impression: Sinusitis, Epiglottitis Disposition: HOME SELF-CARE Condition: Good Instructions (If sedation given, give patient instructions): Sinusitis (ED), Epiglottitis (DC) Additional Instructions: Avoid hot foods and beverages 48 hours Prescriptions: Clindamycin [Cleocin] 300 mg PO Q6H #40 cap Dexamethasone [Decadron] 4 mg PO BID #10 tablet Is patient prescribed a controlled substance at d/c from ED?: No Referrals: Warner Núñez DO [Primary Care Provider] - 1-2 days
--- NOTE | 2020-11-08 10:30 | XR ---
EXAMINATION TYPE: XR soft tissue neck DATE OF EXAM: 11/08/2020 COMPARISON: NONE HISTORY: Difficulty swallowing TECHNIQUE: 2 view submitted FINDINGS: [place] osseous structures intact with hypertrophic changes at C6-C7. Prevertebral soft tiss ue structures are normal. There is mild prominence of the epiglottis. Remaining osseous structures in tact. Airway appears patent. Biapical pleural thickening noted. Assessment for adenoidal hypertrophy limited due to positioning. IMPRESSION: 1. There is mild thickening of the epiglottis correlate for mild epiglottitis.
[2020-11-08] MEDS: CLINDAMYCIN 150 MG CAP PO STA (11:32)
[2020-11-08] MEDS: dexAMETHasone 2 MG TAB PO STA (11:32)
== END 2020-11-08 11:43 | disposition home or self-care (01) ==
LOC: EC 09:55
DX: J32.9 Chronic sinusitis, unspecified (principal); J05.10 Acute epiglottitis without obstruction; J02.9 Acute pharyngitis, unspecified; E78.5 Hyperlipidemia, unspecified; I10 Essential (primary) hypertension; K21.9 Gastro-esophageal reflux disease without esophagitis; F17.200 Nicotine dependence, unspecified, uncomplicated; Z79.52 Long term (current) use of systemic steroids; Z88.0 Allergy status to penicillin; Z88.2 Allergy status to sulfonamides; F41.9 Anxiety disorder, unspecified
CPT/HCPCS: 70360; 87081; 87430; 99283

== ENCOUNTER 2021-09-08 11:53 | Emergency (ER) | payer BC ==
[2021-09-08 12:05] VITALS: RESP 18
[2021-09-08 13:12] LABS: Basophils # (A) 0.1 k/uL (0-0.2); Basophils % (A) 1 %; Eosinophils # (A) 0.1 k/uL (0-0.7); Eosinophils % (A) 2 %; HGB 14.1 gm/dL (13.0-17.5); Lymphocytes # (A) 1.8 k/uL (1.0-4.8); Lymphocytes % (A) 27 %; MCH 26.9 pg (25.0-35.0); MCHC 32.1 g/dL (31.0-37.0); MCV 83.8 fL (80.0-100.0); Mean Platelet Volume 7.8; Monocytes # (A) 0.4 k/uL (0-1.0); Monocytes % (A) 6 %; Neutrophils # (A) 4.1 k/uL (1.3-7.7); Neutrophils % (A) 62 %; Platelet Count 257 k/uL (150-450); RBC 5.25 m/uL (4.30-5.90); RDW 12.8 % (11.5-15.5); WBC 6.6 k/uL (3.8-10.6)
--- NOTE | 2021-09-08 13:18 | XR ---
EXAMINATION TYPE: XR chest 2V DATE OF EXAM: 09/08/2021 COMPARISON: Chest x-ray May 26, 2017 HISTORY: Chest tightness and pain. TECHNIQUE: Frontal and lateral views of the chest are obtained. FINDINGS: There is no suspicious focal air space opacity, pleural effusion, or pneumothorax seen. Ca rdiomegaly is present. Overlying EKG leads are in current study are noted. The osseous structures ar e intact. IMPRESSION: Cardiomegaly without acute pulmonary process.
[2021-09-08 13:29] LABS: ALT 39 U/L (4-49); AST 29 U/L (17-59); African American GFR (CKD) >90 (>60 ml/min/1.73 sqM); Albumin 4.4 g/dL (3.5-5.0); Alkaline Phosphatase 90 U/L (38-126); Anion Gap 7 mmol/L; Blood Urea Nitrogen 18 mg/dL (9-20); Calcium 9.1 mg/dL (8.4-10.2); Carbon Dioxide 24 mmol/L (22-30); Chloride 107 mmol/L (98-107); Glucose 97 mg/dL (74-99); Lipase 57 U/L (23-300); Magnesium 2.1 mg/dL (1.6-2.3); Non-African American GFR(CKD) >90 (>60 ml/min/1.73 sqM); Potassium 4.1 mmol/L (3.5-5.1); Sodium 138 mmol/L (137-145); Total Bilirubin 0.4 mg/dL (0.2-1.3); Total Protein 7.2 g/dL (6.3-8.2)
--- NOTE | 2021-09-08 13:30 | ED ---
Chest Pain HPI - General Chief Complaint: Chest Pain Stated Complaint: Chest pain Time Seen by Provider: 09/08/21 12:09 Source: patient Mode of arrival: ambulatory Limitations: no limitations - History of Present Illness Initial Comments: 44-year-old male presents to the emergency department with chest pain for the past several months. States he will get intermittent episodes of palpitations and chest pain when he is at rest. He denies previous history of cardiac disease. No family history of sudden cardiac . No lower extremity swelling. No history of DVT or PE. Denies any shortness of breath. No fevers chills or cough. He has had stress testing previously there is primary care which is a was been normal. Yesterday the pressure seemed to be exacerbated from baseline and this is what prompted his ER visit today. He denies any nausea or vomiting. No abdominal pain. No other alleviating, precipitating or modifying factors - Related Data Home Medications Medication Instructions Recorded Confirmed Escitalopram [Lexapro] 10 mg PO HS 05/20/17 09/08/21 Cholestyramine (with Sugar) 4 gm PO MOWEFR 09/08/21 09/08/21 [Cholestyramine Packet] Pantoprazole [Protonix] 40 mg PO DAILY 09/08/21 09/08/21 Previous Rx's Medication Instructions Recorded Metoprolol Tartrate [Lopressor] 25 mg PO BID #60 tab 05/27/17 Allergies Allergy/AdvReac Type Severity Reaction Status Date / Time Penicillins Allergy rash all Verified 09/08/21 14:05 over Sulfa (Sulfonamide Allergy Rash/Hives Verified 09/08/21 14:05 Antibiotics) on palm of hands & bottom of feet Review of Systems ROS Statement: Those systems with pertinent positive or pertinent negative responses have been documented in the HPI. ROS Other: All systems not noted in ROS Statement are negative. EKG Findings - EKG Comments: EKG Findings:: EKG demonstrates sinus rhythm with a rate of 62. [place] interval 168. QRS 97. QTC of 47. No acute ST segment elevations or depressions Past Medical History Past Medical History: GERD/Reflux, Hyperlipidemia, Hypertension, Pneumonia Additional Past Medical History / Comment(s): pneumonia 2018, abd. & back pain going on for 2 months, bloating, full feeling upper abd., recent CT scan & Hida scan-both wnl History of Any Multi-Drug Resistant Organisms: None Reported Past Surgical History: No Surgical Hx Reported Additional Past Surgical History / Comment(s): vasectomy, cyst removed from left breast Past Anesthesia/Blood Transfusion Reactions: No Reported Reaction Past Psychological History: Anxiety Smoking Status: Current some day smoker Past Alcohol Use History: Occasional Past Drug Use History: None Reported - Past Family History Father Family Medical History: Cancer Mother Family Medical History: Diabetes Mellitus, Hypertension Additional Family Medical History / Comment(s): chrons, diverticulosis, General Exam Limitations: no limitations General appearance: alert, in no apparent distress Head exam: Present: atraumatic, normocephalic, normal inspection Eye exam: Present: normal appearance, PERRL, EOMI. Absent: scleral icterus, conjunctival injection, periorbital swelling ENT exam: Present: normal exam, mucous membranes moist Neck exam: Present: normal inspection. Absent: tenderness, meningismus, lymphadenopathy Respiratory exam: Present: normal lung sounds bilaterally. Absent: respiratory distress, wheezes, rales, rhonchi, stridor Cardiovascular Exam: Present: regular rate, normal rhythm, normal heart sounds. Absent: systolic murmur, diastolic murmur, rubs, gallop, clicks GI/Abdominal exam: Present: soft, normal bowel sounds. Absent: distended, tenderness, guarding, rebound, rigid Extremities exam: Present: normal inspection, full ROM, normal capillary refill. Absent: tenderness, pedal edema, joint swelling, calf tenderness Back exam: Present: normal inspection Neurological exam: Present: alert, oriented X3, CN II-XII intact Psychiatric exam: Present: normal affect, normal mood Skin exam: Present: warm, dry, intact, normal color. Absent: rash Course Vital Signs 09/08/21 09/08/21 09/08/21 12:03 13:42 15:08 Temperature 98.1 F 98.0 F Pulse Rate 60 60 54 L Respiratory 18 18 18 Rate Blood Pressure 154/91 145/73 140/90 O2 Sat by Pulse 98 99 98 Oximetry Chest Pain MDM - MDM Upon arrival patient's placed in room 33. A thorough history and physical exam was performed. The axis established laboratory studies were conducted. Patient does go for chest x-ray. Laboratory studies are reviewed. Troponin is negative. D-dimer is negative. TSH is normal. Chest x-ray demonstrates cardiomegaly without acute process. Results are discussed the patient. Will be discharged home at this time as this chest pain has been present for the past several months. He is to follow up with cardiology for Holter monitoring and echo. Return for any new or worsening symptoms. Patient agrees chewable and he was discharged home in stable condition Disposition Clinical Impression: Chest pain Disposition: HOME SELF-CARE Condition: Stable Instructions (If sedation given, give patient instructions): Chest Pain (ED) Additional Instructions: You need to follow up with your primary care doctor in 2-4 days. Return for any new or worsening symptoms. You should have an echo and Holter monitoring. Return for any worsening symptoms Is patient prescribed a controlled substance at d/c from ED?: No Referrals: Warner Núñez DO [Primary Care Provider] - 1-2 days [facility] [Provider Group] - 1-2 days Time of Disposition: 14:59
[2021-09-08 13:35] LABS: Prothrombin Time 10.5 sec (9.0-12.0)
[2021-09-08 15:08] VITALS: BP 140/90; PULSE 54; TEMP 98
== END 2021-09-08 15:08 | disposition home or self-care (01) ==
LOC: EC 11:53
DX: R07.89 Other chest pain (principal); I10 Essential (primary) hypertension; E78.5 Hyperlipidemia, unspecified; K21.9 Gastro-esophageal reflux disease without esophagitis; Z79.83 Long term (current) use of bisphosphonates; F17.200 Nicotine dependence, unspecified, uncomplicated; Z88.0 Allergy status to penicillin; Z88.2 Allergy status to sulfonamides
CPT/HCPCS: 36415; 71046; 80053; 83690; 83735; 84443; 84484; 85025; 85379; 85610; 85730; 93005

== ENCOUNTER → 2022-03-24 | Outpatient (CLI) | payer BC ==
[2022-03-24 14:55] LABS: ALT 46 U/L (10-49); AST 26 U/L (14-35); Chol/HDL Ratio 3.76 Ratio; LDL Cholesterol,Calculated 97.3 mg/dL (0.0-131.0); VLDL Calculation 18.02 mg/dL (5.00-40.00)
== END | disposition home or self-care (01) ==
LOC: LABWHC1 03-23 08:41
PROVIDERS: ATTEND Internal Medicine Interventional Cardiology
DX: E78.00 Pure hypercholesterolemia, unspecified (principal)
CPT/HCPCS: 36415; 80061; 84450; 84460

== ENCOUNTER → 2023-02-16 | Outpatient (CLI) | payer BC ==
[2023-02-16 17:01] LABS: Chol/HDL Ratio 4.25 Ratio; LDL Cholesterol,Calculated 103.5 mg/dL (0.0-131.0)
[2023-02-16 17:10] LABS: ALT 55 U/L (10-49); AST 40 U/L (14-35)
== END | disposition home or self-care (01) ==
LOC: LABWHC1 08:55
PROVIDERS: ATTEND Internal Medicine Interventional Cardiology
DX: E78.00 Pure hypercholesterolemia, unspecified (principal)
CPT/HCPCS: 36415; 80061; 84450; 84460